=== PATIENT | female | born 1995 | race Caucasian/White ===

== ENCOUNTER → 2016-12-27 | Outpatient (CLI) | payer OTHER ==
--- NOTE | 2016-12-27 15:58 | REP ---
Chest x-ray: Two views. History: Bronchitis. . Comparison study: September 27, 2015 . Findings: The lungs are well inflated and free of infiltrate. The pleural angles are sharp. The heart size is normal. Pulmonary vasculature is not increased. No significant bony abnormality is seen. Impression: Negative chest x-ray. Signed by Chemo Morrison MD 12/27/2016 03:49 P
== END ==
LOC: M WUC 14:58
PROVIDERS: ATTEND Nurse Practitioner Family
DX: J20.9 Acute bronchitis, unspecified (principal)

== ENCOUNTER 2017-06-14 21:36 | Observation (INO) | payer OTHER ==
[~2017-06-14] VITALS: Ht 167.6 cm; Wt 86.4 kg
[2017-06-14] MEDS ORDERED: IMIT50TA PO (21:44)
[2017-06-14] MEDS ORDERED: LORA10TA2 PO (21:44)
[2017-06-14] MEDS ORDERED: ONDANSETRON 4MG/2ML VIAL (J2405) IV ONE (23:00)
[2017-06-14] MEDS ORDERED: MORPHINE 4 MG/ML 1ML SYRINGE IV ONE (23:00)
[2017-06-14 23:14] LABS: BASO % 0.5 % (0.0-1.0); EOS # 0.2 K/mm3 (0.0-0.50); EOS % 1.9 % (0.0-3.0); LARGE UNSTAINED CELL # 0.1 K/mm3 (0.0-0.4); LARGE UNSTAINED CELL % 1.2 % (0.0-4.0); LYMPH # 2.5 K/mm3 (1.5-6.5); LYMPH % 29.1 % (24.0-44.0); MEAN CORPUSCULAR HEMOGLOBIN 29.8 pg (27.0-33.0); MEAN CORPUSCULAR HGB CONC 34.3 g/dl (32.0-36.5); MEAN CORPUSCULAR VOLUME 86.7 fl (80.0-96.0); MONO # 0.4 K/mm3 (0.0-0.8); MONO % 5.3 % (0.0-5.0); NEUTROPHILS # 5.1 K/mm3 (1.8-7.7); PLATELET COUNT, AUTOMATED 217 k/mm3 (150-450); WHITE BLOOD COUNT 8.3 K/mm3 (4.0-10.0)
[2017-06-14 23:29] LABS: CONTROL LINE HCG INT CTR LINE PRESENT
[2017-06-14 23:37] LABS: ALBUMIN/GLOBULIN RATIO 1.18 (1.00-1.93); ALKALINE PHOSPHATASE 100 U/L (45-117); ALT/SGPT 23 U/L (12-78); AMYLASE 73 U/L (25-115); ANION GAP 3 MEQ/L (8-16); AST/SGOT 14 U/L (15-37); BILIRUBIN,DIRECT 0.1 MG/DL (0.0-0.2); BILIRUBIN,TOTAL 0.4 MG/DL (0.2-1.0); BLOOD UREA NITROGEN 13 MG/DL (7-18); CALCIUM LEVEL 9.1 MG/DL (8.5-10.1); CARBON DIOXIDE LEVEL 29 MEQ/L (21-32); CHLORIDE LEVEL 108 MEQ/L (98-107); GLOMERULAR FILTRATION RATE > 60.0 (>60); GLUCOSE, FASTING 81 MG/DL (70-105); POTASSIUM SERUM 4.3 MEQ/L (3.5-5.1); SODIUM LEVEL 140 MEQ/L (136-145); TOTAL PROTEIN 7.4 GM/DL (6.4-8.2)
[2017-06-14] MEDS ORDERED: ISOVUE-370 76% 100ML VIAL (Q9967) As Ordered ONE (23:43)
[2017-06-15] MEDS ORDERED: ZOSYN 3.375 GM VIAL (J2543) As Ordered ONE (02:31)
--- NOTE | 2017-06-15 03:26 | REPUSA ---
CLINICAL HISTORY: Abdominal pain. TECHNIQUE: Multiple axial, sagittal and coronal CT images were obtained through the abdomen and pelvi s after administration of intravenous contrast material. COMMENTS: Thickening and enhancement of the appendix. 2.6 cm ruptured follicle/corpus luteum enhancing cyst of the right ovary. Small amount of free pelvic fluid. The intrauterine device is at the level of the endocervical canal. The liver is mildly enlarged with decreased uniform attenuation without mass or defect. There is no i ntra or extrahepatic biliary ductal dilatation. The spleen is normal. The gallbladder is within steven l limits. The pancreas is of normal contour and attenuation characteristics. There is no evidence of adrenal mass. Both kidneys demonstrate prompt and equal nephrograms. The kidneys are normal in size, shape and conf iguration. There is no evidence of renal or ureteral mass. No renal or ureteral calculi are identifie d. There is no hydroureter or hydronephrosis. There is no bowel wall thickening. No evidence for small or large bowel obstruction. There is no evid ence of abdominal lymphadenopathy. There is no evidence of intrinsic or extrinsic bladder mass. Mild diffuse thickening of the wall of t he bladder. Images of the lung bases show no evidence of pleural or parenchymal mass. There are no pleural effusi ons. The bony structures are free of lytic or blastic lesions. IMPRESSION: Mild hepatomegaly with fatty liver infiltration. Thickening of and enhancement of the appendix suggestive of mild changes of acute appendicitis. No pe rforation or abscess formation. Findings were not present on prior exam performed on 11/02/2014. Ruptured follicle/corpus luteum cyst of the right ovary. Small amount of free pelvic fluid. The intrauterine device is partially in the endocervical canal. Thickened bladder suggestive of mild cystitis. Uncomplicated sigmoid diverticulosis. Thank you for your kind referral of this patient.
[2017-06-15 03:30] VITALS: BP 133/76
[2017-06-15] MEDS: MORPHINE 2 MG/ML 1ML SYRINGE IV PRN ×2 (04:35→08:14)
[2017-06-15] MEDS: LR 1,000 ML IV SCH ×3 (04:36→18:27)
[2017-06-15] MEDS ORDERED: ZONI50CA3 PO (04:43)
[2017-06-15] MEDS ORDERED: FLON1SPR (04:43)
[2017-06-15] MEDS ORDERED: VITATAB11 PO (04:43)
[2017-06-15] MEDS ORDERED: SUMA25TA3 PO (04:43)
[2017-06-15] MEDS ORDERED: ALBU17IN INH (04:43)
[2017-06-15] MEDS ORDERED: MAGN400T2 PO (04:43)
[2017-06-15] MEDS ORDERED: SKYL13.5 IU (04:43)
[2017-06-15] MEDS ORDERED: ZONI25CA2 PO (04:43)
[2017-06-15] MEDS ORDERED: AZEL0.1S3 (04:43)
[2017-06-15 06:32] LABS: MEAN CORPUSCULAR HEMOGLOBIN 29.9 pg (27.0-33.0); MEAN CORPUSCULAR VOLUME 87.8 fl (80.0-96.0); RED CELL DISTRIBUTION WIDTH 12.9 % (11.5-14.5); WHITE BLOOD COUNT 9.3 K/mm3 (4.0-10.0)
[2017-06-15 08:00] VITALS: BP 103/53
[2017-06-15] MEDS ORDERED: ACETAMINOPHEN TAB 650MG DOSE (2X325MG) PO PRN (09:00)
--- NOTE | 2017-06-15 10:53 | HPE ---
DATE: 06/15/2017 CHIEF COMPLAINT: Right lower quadrant pain. HISTORY OF PRESENT ILLNESS: The patient is 21-year-old female who presents a right lower quadrant pain that started suddenly while she was at work on Tuesday. The pain never went away, but it never really got much worse either. She came into emergency room last evening, Tuesday evening for evaluation. Vitals are stable. Labs were normal, however, a CAT scan showed small inflammation of the appendix so I was called to evaluate. She was admitted overnight with diagnosis of right lower quadrant pain. This morning upon further review of her CAT scan, she actually also has a 2.6 cm ruptured follicle coarse luteum cyst of the right ovary with a small amount of free fluid in the pelvis. She says that the pain did occur suddenly on Tuesday. No real change in appetite. No fevers. No nausea or vomiting. No problems with bowel movements or urination. She has never had any pains like this in the past. There is been minor improvement since she has been here overnight white count on admission was 8.38, its up to 9.3 today, still within normal range. Still denies any nausea or vomiting. No fevers or chills. PAST MEDICAL HISTORY: Positive for melanoma she had excised from her back. PAST SURGICAL HISTORY: Melanoma excision from back along with lymph nodes. No other surgeries. ALLERGIES: None. HOME MEDICATIONS: albuterol, Flonase, loratadine, sumatriptan, zonisamide. SOCIAL HISTORY: Denies drug or tobacco abuse. Drinks alcohol socially. REVIEW OF SYSTEMS: Pertinent positive and negatives started in the HPI. PHYSICAL EXAMINATION: General alert and oriented times three. In no acute distress. Vitals: Temperature 98.5, pulse 73, respirations 18, blood pressure 103/53, pulse ox 98% room air. HEENT: Pupils equal round react to light and accommodation. Heart: S1-S2 regular rate and rhythm. Lungs: Clear auscultation bilaterally. Abdomen: Soft, slight tenderness to palpation right lower quadrant. No rebounding, guarding or rigidity. Extremities: No clubbing, cyanosis or edema. LABORATORY DATA: White count 9.3, hemoglobin 12.7, platelets 200, potassium 4.3. IMAGING STUDIES: CT abdomen and pelvis shows thickening and enhancement of the appendix, a 2.6 cm ruptured follicle corpus luteum enhancing cyst of the right ovary small amount of free pelvic fluid. ASSESSMENT/PLAN: The patient is a 21-year-old female with the right lower quadrant pain that has been going on for the past over 48 hours. Normal vitals. Normal labs. There is thickening of the appendix on CAT scan, however, there is also a ruptured cyst of the right ovary with free fluid in the pelvis. At this time this inflammation of the appendix is likely reactive, the primary source is most likely this ruptured ovarian cyst on the right lower quadrant. Recommendation at this time is to trial a diet to see how she feels, if she is tolerating diet and no change in her labs or pain by tomorrow then she will be discharged home. If her pain gets worse, if she starts to develop nausea, vomiting, fevers or increasing pain then we will consider diagnostic laparoscopy tomorrow morning with further recommendations to follow.
[2017-06-15] MEDS: SENOKOT S TAB PO SCH ×2 (11:03→21:00)
[2017-06-15] MEDS: KETOROLAC 30 MG/ML VIAL (J1885) IV PRN ×2 (11:08→18:21)
[2017-06-15 12:00] VITALS: BP 99/54
[2017-06-15] MEDS: ONDANSETRON 4MG/2ML VIAL (J2405) IV PRN (13:27)
[2017-06-15 16:00] VITALS: BP 124/66
[2017-06-15] MEDS ORDERED: SUMAtriptan SUCCINATE 25 MG TAB PO ONE (17:15)
[2017-06-15 20:00] VITALS: BP 121/71
[2017-06-16] VITALS: BP 128/68
[2017-06-16] MEDS: KETOROLAC 30 MG/ML VIAL (J1885) IV PRN ×2 (00:16→07:50)
[2017-06-16] MEDS: LR 1,000 ML IV SCH (03:24)
[2017-06-16 04:00] VITALS: BP 119/63
[2017-06-16 06:29] LABS: BASO % 0.4 % (0.0-1.0); EOS # 0.1 K/mm3 (0.0-0.50); EOS % 1.6 % (0.0-3.0); LARGE UNSTAINED CELL # 0.1 K/mm3 (0.0-0.4); LARGE UNSTAINED CELL % 1.7 % (0.0-4.0); LYMPH # 2.6 K/mm3 (1.5-6.5); MEAN CORPUSCULAR HEMOGLOBIN 29.5 pg (27.0-33.0); MEAN CORPUSCULAR HGB CONC 33.9 g/dl (32.0-36.5); MONO # 0.4 K/mm3 (0.0-0.8); MONO % 5.7 % (0.0-5.0); NEUTROPHILS % 55.7 % (36.0-66.0); PLATELET COUNT, AUTOMATED 181 k/mm3 (150-450); RED CELL DISTRIBUTION WIDTH 12.9 % (11.5-14.5); WHITE BLOOD COUNT 7.1 K/mm3 (4.0-10.0)
[2017-06-16] MEDS: ONDANSETRON 4MG/2ML VIAL (J2405) IV PRN (07:57)
[2017-06-16] MEDS: SENOKOT S TAB PO SCH (07:57)
[2017-06-16 08:00] VITALS: BP 122/67
[2017-06-16] MEDS ORDERED: NORC1TAB4 PO (09:41)
[2017-06-17] MEDS ORDERED: ZONI25CA2 PO (17:02)
[2017-06-17] MEDS ORDERED: SUMA25TA3 PO (17:02)
[2017-06-17] MEDS ORDERED: ZONI50CA3 PO (17:02)
[2017-06-17] MEDS ORDERED: NORC1TAB4 PO (17:03)
--- NOTE | 2017-06-18 02:16 | DSES ---
DATE OF ADMISSION: 06/15/2017 DATE OF DISCHARGE: 06/16/2017 ADMISSION DIAGNOSIS: Right lower quadrant pain. DISCHARGE DIAGNOSIS: Ruptured right ovarian cyst. HOSPITAL COURSE: Patient is 21-year-old female who presented with right lower quadrant abdominal pain that started on Tuesday and she came in to the emergency room late Tuesday evening, had a CT scan done, which showed inflammation of the right appendix, as well as a ruptured cyst on the right ovary and free fluid in the pelvis. She had normal vital signs, normal white count in the emergency room (ER). She was admitted for observation. By later in the morning on 06/15, she was having similar pains, nausea, but still not having any fevers and her white count remained normal. She was started on a diet, allowed to ambulate. This morning, 06/16, she feels slightly improved, but is still having the same pains. She is still not having any signs of fever and her white count has decreased. At this time, it is likely that all of her symptoms are secondary to this ruptured ovarian cyst. I gave her the option of a diagnostic laparoscopy versus watching and waiting. She agrees that this is likely from her cyst and would like to try going home to see if this will improve on its own. I told her that she can go home. I will give her some pain medications to last her a couple of days. No antibiotics. If she starts to develop any increasing pain, any fevers, any problems with bowel movements or urination to call my office immediately and we will repeat a CT scan to see if there are any changes in her progression. This was likely just reactive appendicitis secondary to a ruptured cyst. PLAN: As stated above, discharge home. Call me with any changes in her symptoms and followup with me in the office as needed. She was given a script for Hudson for about 5 days to go home with.
== END 2017-06-16 10:30 | disposition home or self-care (01) ==
LOC: M ED 21:36 → M ED INP 06-15 02:35 → M PED 06-15 03:35
PROVIDERS: ADMIT Surgery; ATTEND Surgery
DX: N83.11 Corpus luteum cyst of right ovary (principal); R10.31 Right lower quadrant pain

== ENCOUNTER 2017-06-17 15:39 | Day surgery (SDC) | payer OTHER ==
[~2017-06-17] VITALS: Ht 167.6 cm; Wt 92.4 kg
[~2017-06-17 15:39] MED LIST: ALBU17IN INH; AZEL0.1S3; FLON1SPR; IMIT50TA PO; LORA10TA2 PO; MAGN400T2 PO; NORC1TAB4 PO; SKYL13.5 IU; SUMA25TA3 PO; VITATAB11 PO; ZONI25CA2 PO; ZONI50CA3 PO
[2017-06-17] MEDS ORDERED: PIPERACILLIN/TAZOBACTAM SOD 3.375 GM in D5W MINI-BAG PLUS 50 ML IV ONE (16:45)
[2017-06-17] MEDS ORDERED: ONDANSETRON 4MG/2ML VIAL (J2405) IV ONE (16:45)
[2017-06-17] MEDS ORDERED: GASTROGRAFIN SOLUTION 30ML (Q9963) PO ONE ×2 (16:45)
[2017-06-17] MEDS ORDERED: ZONI25CA2 PO (17:02)
[2017-06-17] MEDS ORDERED: SUMA25TA3 PO (17:02)
[2017-06-17] MEDS ORDERED: ZONI50CA3 PO (17:02)
[2017-06-17] MEDS ORDERED: NORC1TAB4 PO (17:03)
[2017-06-17] MEDS: MORPHINE 4 MG/ML 1ML SYRINGE IV PRN (17:43)
[2017-06-17 17:44] LABS: BASO # 0.1 K/mm3 (0.0-0.2); BASO % 0.9 % (0.0-1.0); CONTROL LINE HCG INT CTR LINE PRESENT; EOS % 0.6 % (0.0-3.0); LARGE UNSTAINED CELL # 0.1 K/mm3 (0.0-0.4); LYMPH # 1.1 K/mm3 (1.5-6.5); LYMPH % 15.3 % (24.0-44.0); MEAN CORPUSCULAR HEMOGLOBIN 30.4 pg (27.0-33.0); MEAN CORPUSCULAR HGB CONC 34.8 g/dl (32.0-36.5); MEAN CORPUSCULAR VOLUME 87.4 fl (80.0-96.0); MONO # 0.3 K/mm3 (0.0-0.8); MONO % 4.2 % (0.0-5.0); NEUTROPHILS # 5.7 K/mm3 (1.8-7.7); PLATELET COUNT, AUTOMATED 187 k/mm3 (150-450); RED CELL DISTRIBUTION WIDTH 12.7 % (11.5-14.5); WHITE BLOOD COUNT 7.3 K/mm3 (4.0-10.0)
[2017-06-17 17:48] LABS: ALBUMIN 3.7 GM/DL (3.2-5.2); ALBUMIN/GLOBULIN RATIO 1.06 (1.00-1.93); ALKALINE PHOSPHATASE 92 U/L (45-117); ALT/SGPT 34 U/L (12-78); ANION GAP 5 MEQ/L (8-16); AST/SGOT 20 U/L (15-37); BILIRUBIN,DIRECT 0.1 MG/DL (0.0-0.2); BILIRUBIN,TOTAL 0.6 MG/DL (0.2-1.0); BLOOD UREA NITROGEN 14 MG/DL (7-18); CALCIUM LEVEL 8.8 MG/DL (8.5-10.1); CARBON DIOXIDE LEVEL 26 MEQ/L (21-32); CHLORIDE LEVEL 106 MEQ/L (98-107); CREATININE FOR GFR 0.78 MG/DL (0.55-1.02); GLOMERULAR FILTRATION RATE > 60.0 (>60); GLUCOSE, FASTING 84 MG/DL (70-105); SODIUM LEVEL 137 MEQ/L (136-145); TOTAL PROTEIN 7.2 GM/DL (6.4-8.2)
[2017-06-17] MEDS ORDERED: ISOVUE-370 76% 100ML VIAL (Q9967) As Ordered ONE (18:57)
--- NOTE | 2017-06-17 19:12 | REP ---
PELVIC ULTRASOUND: Real-time sonographic evaluation of the pelvis was performed utilizing transabdominal and endovaginal technique. The urinary bladder is not distended. Uterus measures 7.9 x 3.9 x 4.9 cm. Endometrial thickness is approximately 7 mm. IUD is seen in the lower uterine segment of the cervix. Right ovary measures 4.1 x 2.2 x 2.8 cm. There is a dominant follicle in the right ovary 1.4 x 0.9 x 1.6 cm. There is trace adjacent free fluid. There is no right ovarian torsion with RI of the right ovary 0.43. Left ovary could not be seen due to overlying bowel. Uterus has a somewhat septate configuration. IMPRESSION: IUD in the lower uterine segment and cervical canal. Dominant follicle right ovary 1.6 cm in maximum diameter with no torsion. Trace adjacent free fluid, left ovary could not be visualized. Signed by Alan Cleveland MD 06/17/2017 08:20 P
--- NOTE | 2017-06-17 19:57 | HPEPDOC ---
General Surgery H&P Date of Admission History and Physical CHIEF COMPLAINT: Right-sided abdominal pain HISTORY OF PRESENT ILLNESS: he patient is a 21-year-old female admitted with a reason for visit of right-sided abdominal pain. She reports 5 day history of abdominal pain that started late Tuesday. She was seen here Tuesday and was briefly admitted for observation. Her symptoms did not get worse though it not also improved. She was able to tolerate food and was subsequently discharged home and told to call if her symptoms worsen or started having vomiting, fever or worsening abdominal pain which did happened this morning. Patient reports fevers and chills when she woke up this morning has more constant and sharp abdominal pain over her right lower quadrant area also reports nausea. Thus she presented back to the emergency room ALLERGIES: Please see below. HOME MEDICATIONS: Please see below. PAST MEDICAL HISTORY: Melanoma, back PAST SURGICAL HISTORY: Excision of melanoma, axillary node dissection PERSONAL/SOCIAL HISTORY: Denies smoking, alcohol use, or recreational drug use. REVIEW OF SYSTEMS: GENERAL: Reports chills, fever this morning. HEENT: Denies blurred vision and double vision. Denies ear symptoms. Denies hoarseness. NECK: Denies any neck pain. CARDIOVASCULAR: Denies chest pain and palpitations. MUSCULOSKELETAL: Denies arthralgias, back pain and thrombophlebitis. SKIN: Denies rash. NEUROLOGIC: Denies headache, stroke and transient ischemic attack. PSYCHIATRIC: Reports anxiety ENDOCRINE: Denies thyroid disease. HEMATOLOGY/ONCOLOGY: Denies any bleeding or clotting disorder. HEART: Denies any chest pains, palpitations, paroxysmal dyspnea, orthopnea. PULMONARY: Denies chronic cough, dyspnea and wheezing. GASTROINTESTINAL: See HPI. GENITOURINARY: Denies dysuria, frequency, hematuria and nocturia. ENDOCRINE: Denies polydipsia, polyphagia, polyuria, heat or cold intolerance. INFECTIOUS: Denies any recent upper respiratory tract infection, UTI, need for use of antibiotics. NUTRITION: Reports anorexia. PHYSICAL EXAMINATION: VITAL SIGNS: Please see below. GENERAL APPEARANCE: Patient seen at bedside, crying, appears anxious, uncomfortable HEENT: Normocephalic, atraumatic. Cushing palpebral conjunctivae. Anicteric sclerae. Lips moist. CHEST: No chest wall abnormalities. Normal respiratory motion/effort. NECK: Supple. No thyromegaly. No lymphadenopathies. LUNGS: Lung sounds are clear to auscultation bilaterally. No wheezing appreciated. HEART: No chest wall abnormalities. Heart rate and rhythm are regular with no murmurs. ABDOMEN: Abdomen is mildly obese, soft, nondistended. Tender over the right side of the abdomen going towards the suprapubic area with voluntary guarding. Nontender left side of the abdomen. SKIN: Warm, moist. EXTREMITIES: Extremities have no deformities. No edema identified. NEUROLOGICAL: Awake alert and oriented ANCILLARIES: . LABORATORY DATA: Please see below. MICROBIOLOGY: Please see below. IMAGING: She has CT scan of the abdomen and pelvis done on previous admission on June 12 this was also repeated today. This has not been officially read yet. I looked at the CAT scan and compared it with the previous imaging studies and findings almost looked the same with probable mild Initial inflammation also presence of corpus luteum cyst with small amount of free fluid surrounding it. IMPRESSION AND PLAN: . Patient is persistent right-sided abdominal pain with possible signs of systemic infection with her reporting fevers and chills this morning. She still don't have leukocytosis. No fevers noted in the vitals today. She is tender over the right side also going towards the pelvis. Both the hemorrhagic corpus luteum cyst and mild appendicitis can cause this. We will bring her to the operating room for diagnostic laparoscopy. I have spoken to her regarding my plans regarding the appendix. If we confirm that she does have appendicitis she will have an appendectomy. I have spoken to Dr. Multani who is at the hospital. If it turns out that she has a normal appendix and a hemorrhagic corpus luteum cyst I will ask him to take a look in the operating room and decide if there is anything that needs to be done. I did tell the patient that even with a normal appendix, I intend to perform the appendectomy as if she does have recurrent hemorrhagic cysts, she will end up with the same predicament and this will in turn remove the appendix from the equation when she's had the appendectomy. Consent was obtained from the patient. She was already given a dose of Zosyn which should be adequate for our preoperative dose. Vital Signs Vital Signs Date Time Temp Pulse Resp B/P (MAP) Pulse Ox O2 Delivery O2 Flow Rate FiO2 06/17/17 17:53 16 06/17/17 17:35 06/17/17 15:40 98.6 108 97 Room Air Laboratory Data Labs 24H Laboratory Tests 2 06/17/17 17:13: White Blood Count 7.3, Red Blood Count 4.65, Hemoglobin 14.1, Hematocrit 40.7, Mean Corpuscular Volume 87.4, Mean Corpuscular Hemoglobin 30.4, Mean Corpuscular Hemoglobin Concent 34.8, Red Cell Distribution Width 12.7, Platelet Count 187, Neutrophils (%) (Auto) 78.0H, Lymphocytes (%) (Auto) 15.3L, Monocytes (%) (Auto) 4.2, Eosinophils (%) (Auto) 0.6, Basophils (%) (Auto) 0.9, Neutrophils # (Auto) 5.7, Lymphocytes # (Auto) 1.1L, Monocytes # (Auto) 0.3, Eosinophils # (Auto) 0.0, Basophils # (Auto) 0.1, Large Unclassified Cells % 1.0 , Large Unclassified Cells # 0.1, Anion Gap 5L, Glomerular Filtration Rate > 60.0, Calcium Level 8.8, Aspartate Amino Transf (AST/SGOT) 20, Alanine Aminotransferase (ALT/SGPT) 34, Alkaline Phosphatase 92, Total Bilirubin 0.6, Direct Bilirubin 0.1, Total Protein 7.2, Albumin 3.7, Albumin/Globulin Ratio 1.06, Lipase 116, Human Chorionic Gonadotropin, Qual NEGATIVE CBC/BMP Laboratory Tests 06/17/17 17:13 Red Blood Count 4.65, Mean Corpuscular Volume 87.4, Mean Corpuscular Hemoglobin 30.4, Mean Corpuscular Hemoglobin Concent 34.8, Red Cell Distribution Width 12.7 , Neutrophils (%) (Auto) 78.0 H, Lymphocytes (%) (Auto) 15.3 L, Monocytes (%) ( Auto) 4.2, Eosinophils (%) (Auto) 0.6, Basophils (%) (Auto) 0.9, Neutrophils # ( Auto) 5.7, Lymphocytes # (Auto) 1.1 L, Monocytes # (Auto) 0.3, Eosinophils # ( Auto) 0.0, Basophils # (Auto) 0.1 Home Medications Scheduled (Flonase Allergy Relief) 50 Mcg/Act Spr, 100 MCG NA DAILY, (Reported) Azelastine Hydrochloride (Azelastine HCl) 137 Mcg/Crozier Spr, 1 SPRAY NA QHS, ( Reported) B1/B2/B3/B5/B6 (Vitamin B Complex) 1 Tab Tab, 1 TAB PO BID, (Reported) Levonorgestrel (Henrietta) 13.5 Mg Iud, 13.5 MG IU ASDIRECTED, (Reported) IMPLANTED 2015 Loratadine (Loratadine) 10 Mg Tab, 10 MG PO DAILY, (Reported) Magnesium Oxide (Magnesium Oxide) 400 Mg Tab, 400 MG PO DAILY, (Reported) Zonisamide (Zonisamide) 25 Mg Cap, 25 MG PO QHS, (Reported) Zonisamide (Zonisamide) 50 Mg Cap, 50 MG PO BID, (Reported) Scheduled PRN Acetaminophen/Hydrocodone (Basalt 5-325 mg) 1 Tab Tab, 1 TAB PO Q4H PRN for PAIN, (Reported) Albuterol Sulfate (Ventolin Hfa) 200 Puff/8 Gm Aers, 2 PUFF INH QID PRN for SHORTNESS OF BREATH, (Reported) Sumatriptan Succinate (Sumatriptan Succinate) 25 Mg Tab, 25 MG PO DAILY PRN for HEADACHE, (Reported) Allergies Coded Allergies: No Known Allergies (Unverified , 06/14/17) EMILIANO BRADFORD MD Jun 17, 2017 19:57
[2017-06-17] MEDS ORDERED: PHENYLEPHRINE 0.5% NASAL SPRAY 15 ML As Ordered ONE (20:28)
[2017-06-17] MEDS ORDERED: LIDOCAINE 1% SDV INJ 30 ML VIAL As Ordered ONE (21:02)
[2017-06-17] MEDS ORDERED: BUPIVACAINE HCL 0.25% 30 ML VIAL As Ordered ONE (21:03)
[2017-06-17] MEDS ORDERED: METOCLOPRAMIDE INJ 10MG/2ML VIAL (J2765) As Ordered ONE (21:09)
[2017-06-17] MEDS ORDERED: ROCURONIUM BROMIDE 50 MG/5 ML VIAL/SYRINGE As Ordered ONE (21:09)
[2017-06-17] MEDS ORDERED: fentaNYL 250 MCG/5 ML INJECTION (J3010) As Ordered ONE (21:09)
[2017-06-17] MEDS ORDERED: LIDOCAINE 2% INJ 100 MG/5 ML SDV (FOR ANES.) As Ordered ONE (21:09)
[2017-06-17] MEDS ORDERED: GLYCOPYRROLATE INJ 0.2 MG/ML 2 ML VIAL As Ordered ONE (21:09)
[2017-06-17] MEDS ORDERED: NEOSTIGMINE 1MG/ML 5 ML SYRINGE (J2710) As Ordered ONE (21:09)
[2017-06-17] MEDS ORDERED: MIDAZOLAM INJ 2 MG/2 ML VIAL (J2250) As Ordered ONE (21:09)
[2017-06-17] MEDS ORDERED: ONDANSETRON 4MG/2ML VIAL (J2405) As Ordered ONE (21:09)
[2017-06-17] MEDS ORDERED: KETOROLAC 60 MG/2 ML VIAL (J1885) As Ordered ONE (21:09)
[2017-06-17] MEDS ORDERED: PROPOFOL 200 MG/20 ML VIAL As Ordered ONE (21:09)
[2017-06-17] MEDS ORDERED: DESFLURANE 240 ML INHALANT As Ordered ONE (21:11)
[2017-06-17] MEDS ORDERED: ACETAMINOPHEN TAB 650MG DOSE (2X325MG) PO PRN (22:00)
[2017-06-17] MEDS ORDERED: NORCO, ANEXSIA 5/325MG TABLET (HYDROcodone/ACETAMINOPHEN) PO PRN (22:00)
[2017-06-17] MEDS: ONDANSETRON 4MG/2ML VIAL (J2405) IV PRN (22:02)
[2017-06-17] MEDS ORDERED: PERCOCET 5MG/325MG TAB PO PRN (22:15)
[2017-06-17] MEDS ORDERED: LR 1,000 ML IV SCH (22:15)
[2017-06-17] MEDS ORDERED: ONDANSETRON 4MG/2ML VIAL (J2405) IV PRN (22:15)
[2017-06-17] MEDS ORDERED: METOCLOPRAMIDE INJ 10MG/2ML VIAL (J2765) IV PRN (22:15)
[2017-06-17] MEDS ORDERED: MEPERIDINE INJ 25 MG/ML VIAL (J2175) IV PRN (22:15)
[2017-06-17] MEDS ORDERED: fentaNYL 100 MCG/2 ML INJECTION (J3010) IV PRN (22:15)
[2017-06-17 22:30] VITALS: BP 106/56
[2017-06-17] MEDS: NORCO, ANEXSIA 5/325MG TABLET (HYDROcodone/ACETAMINOPHEN) PO PRN (22:53)
[2017-06-17 23:00] VITALS: BP 110/58
[2017-06-17 23:30] VITALS: BP 103/59
[2017-06-18 00:30] VITALS: BP 111/57
[2017-06-18] MEDS: LR 1,000 ML IV SCH ×2 (00:30→11:35)
[2017-06-18 01:30] VITALS: BP 108/52
[2017-06-18 02:30] VITALS: BP 103/52
[2017-06-18 03:30] VITALS: BP 103/58
[2017-06-18] MEDS: KETOROLAC 30 MG/ML VIAL (J1885) IV PRN ×2 (06:05→15:38)
[2017-06-18 07:23] LABS: BASO % 0.1 % (0.0-1.0); EOS % 0.3 % (0.0-3.0); LARGE UNSTAINED CELL # 0.1 K/mm3 (0.0-0.4); LYMPH # 1.1 K/mm3 (1.5-6.5); LYMPH % 11.9 % (24.0-44.0); MEAN CORPUSCULAR HEMOGLOBIN 29.7 pg (27.0-33.0); MEAN CORPUSCULAR HGB CONC 34.2 g/dl (32.0-36.5); MEAN CORPUSCULAR VOLUME 86.7 fl (80.0-96.0); MONO # 0.4 K/mm3 (0.0-0.8); MONO % 4.4 % (0.0-5.0); NEUTROPHILS # 7.2 K/mm3 (1.8-7.7); NEUTROPHILS % 82.3 % (36.0-66.0); PLATELET COUNT, AUTOMATED 165 k/mm3 (150-450); RED CELL DISTRIBUTION WIDTH 12.9 % (11.5-14.5); WHITE BLOOD COUNT 8.8 K/mm3 (4.0-10.0)
[2017-06-18 07:39] LABS: ANION GAP 6 MEQ/L (8-16); BLOOD UREA NITROGEN 15 MG/DL (7-18); CALCIUM LEVEL 8.9 MG/DL (8.5-10.1); CARBON DIOXIDE LEVEL 26 MEQ/L (21-32); CHLORIDE LEVEL 104 MEQ/L (98-107); CREATININE FOR GFR 0.69 MG/DL (0.55-1.02); GLOMERULAR FILTRATION RATE > 60.0 (>60); GLUCOSE, FASTING 91 MG/DL (70-105); POTASSIUM SERUM 3.8 MEQ/L (3.5-5.1); SODIUM LEVEL 136 MEQ/L (136-145)
[2017-06-18 08:00] VITALS: BP 110/57
[2017-06-18] MEDS: ONDANSETRON 4MG/2ML VIAL (J2405) IV PRN (08:56)
[2017-06-18] MEDS ORDERED: SENOKOT S TAB PO SCH (09:00)
[2017-06-18] MEDS: MORPHINE 4 MG/ML 1ML SYRINGE IV PRN (09:17)
[2017-06-18] MEDS ORDERED: NORC1TAB4 PO (10:27)
[2017-06-18] MEDS ORDERED: ZOFR20TA PO (10:28)
[2017-06-18] MEDS ORDERED: MOM 30ML SUSPENSION UDC PO ONE (11:00)
[2017-06-18] MEDS: NORCO, ANEXSIA 5/325MG TABLET (HYDROcodone/ACETAMINOPHEN) PO PRN (11:34)
[2017-06-18 12:00] VITALS: BP 108/56
[2017-06-18] MEDS ORDERED: NORCO, ANEXSIA 5/325MG TABLET (HYDROcodone/ACETAMINOPHEN) PO ONE (15:30)
--- NOTE | 2017-06-21 09:37 | ROOPDOC ---
[facility] Report Of Operation Report of Operation DATE OF PROCEDURE: 06/17/17 PREPROCEDURE DIAGNOSES: right lower quadrant pain, possible appendicitis vs right ovarian cyst rupture POSTPROCEDURE DIAGNOSES: Small right ovarian cyst, no evidence of hemorrhagic rupture. Mildly enlarged appendix with no evidence for inflammation. PROCEDURE: Diagnostic laparoscopy, laparoscopic appendectomy SURGEON: Jackeline Marcus MD CORPORATE TRAINER: PROMISE Galvez ANESTHESIA: general ESTIMATED BLOOD LOSS: Approximately 10 mL. COMPLICATIONS: none REMARKS: mildly dilated appendix with no signs of ongoing inflammation, infection. Small right ovarian cyst with no signs of recent rupture/hemorrhage. Dr. Multani was in the room and looked at the left and right ovaries. The gallbladder was distended but not inflamed. PROCEDURE NOTE: 21-year-old female who has returned to the hospital with ongoing right-sided abdominal pain and imaging studies shows possible early acute appendicitis versus a ruptured hemorrhagic right ovarian cyst. DESCRIPTION OF PROCEDURE: Patient has been given a dose of Zosyn perioperatively.Patient was brought to the operating room, placed supine on the table. Sequential compression device placed for DVT prophylaxis. General endotracheal anesthesia started. The abdomen prepped and draped in usual sterile fashion. After a surgical timeout, we began our surgery Entry into the abdomen done through an incision above the umbilicus. Veress needle inserted on a controlled fashion. Intra-abdominal placement confirmed with saline drop technique. CO2 insufflation started to a pressure of 15 mmHg. Using the same incision a 12 mm port was placed under direct vision of laparoscope. Insertion site was inspected for injury and none was found. She was placed on a Trendelenburg position the right side tilted to about 30 to allow for better visualization of the appendix. 2 working ports were placed at the suprapubic area and left lower quadrant area under direct vision. Operative findings: mildly dilated appendix with no signs of ongoing inflammation, infection. Small right ovarian cyst with no signs of recent rupture/hemorrhage. Dr. Multani was in the room and looked at the left and right ovaries. The gallbladder was distended but not inflamed. The appendix was delivered into view. The mesoappendix was divided using Harmonic scalpel down to the base. A Vicryl Endoloop was placed to ligate the appendix at its base then divided with a Harmonic Scalpel the stump cauterized. There was stool inside of the appendiceal lumen Stump appears healthy. Appendix was then delivered into an Endo Catch bag. After re- insufflation the surgical site was inspected for hemostasis. Surrounding areas of the abdomen and inspected for fluid collections or signs of injury.The abdomen was deflated. All ports removed. The umbilical fascial defect repaired with 0 Vicryl in a mattress fashion. All skin incisions closed with 4-0 Monocryl in a subcuticular fashion. Steri-Strips and gauze dressing used for wound coverage. Patient was promptly awake and extubated and brought to recovery room stable. All counts of sponges and instruments verified to be correct. EMILIANO MARCUS MD Jun 21, 2017 09:37
== END 2017-06-18 16:20 | disposition home or self-care (01) ==
LOC: M ED 15:39 → M SDC 19:40 → M PED 22:25 → M SDC 06-18 16:20
PROVIDERS: ATTEND Surgery
DX: K38.8 Other specified diseases of appendix (principal); N83.201 Unspecified ovarian cyst, right side; J45.909 Unspecified asthma, uncomplicated; E66.9 Obesity, unspecified; C43.59 Malignant melanoma of other part of trunk; R51 Headache; Z79.899 Other long term (current) drug therapy

== ENCOUNTER 2017-06-22 21:36 | Emergency (ER) | payer OTHER ==
[~2017-06-22] VITALS: Ht 167.6 cm; Wt 90.7 kg
[~2017-06-22 21:36] MED LIST changes: +ZOFR20TA PO
[2017-06-22] MEDS ORDERED: COLA100C5 PO (21:43)
[2017-06-22] MEDS ORDERED: NS 1,000 ML IV SCH (22:37)
[2017-06-22] MEDS ORDERED: ONDANSETRON 4MG/2ML VIAL (J2405) IV ONE (22:45)
[2017-06-22] MEDS ORDERED: KETOROLAC 30 MG/ML VIAL (J1885) IV ONE (22:45)
[2017-06-22 22:51] LABS: BASO % 0.3 % (0.0-1.0); EOS # 0.2 K/mm3 (0.0-0.50); EOS % 3.7 % (0.0-3.0); LARGE UNSTAINED CELL # 0.1 K/mm3 (0.0-0.4); LARGE UNSTAINED CELL % 1.8 % (0.0-4.0); LYMPH # 1.9 K/mm3 (1.5-6.5); LYMPH % 26.4 % (24.0-44.0); MEAN CORPUSCULAR HEMOGLOBIN 29.7 pg (27.0-33.0); MEAN CORPUSCULAR VOLUME 87.6 fl (80.0-96.0); MONO # 0.3 K/mm3 (0.0-0.8); MONO % 3.9 % (0.0-5.0); NEUTROPHILS # 4.2 K/mm3 (1.8-7.7); NEUTROPHILS % 63.9 % (36.0-66.0); PLATELET COUNT, AUTOMATED 277 k/mm3 (150-450); RED CELL DISTRIBUTION WIDTH 12.7 % (11.5-14.5); WHITE BLOOD COUNT 6.6 K/mm3 (4.0-10.0)
[2017-06-22 22:58] LABS: INR 0.96
[2017-06-22 23:15] LABS: ALKALINE PHOSPHATASE 86 U/L (45-117); ALT/SGPT 20 U/L (12-78); ANION GAP 8 MEQ/L (8-16); AST/SGOT 10 U/L (15-37); BLOOD UREA NITROGEN 14 MG/DL (7-18); CALCIUM LEVEL 9.5 MG/DL (8.5-10.1); CARBON DIOXIDE LEVEL 26 MEQ/L (21-32); CHLORIDE LEVEL 101 MEQ/L (98-107); CREATININE FOR GFR 0.73 MG/DL (0.55-1.02); GLOMERULAR FILTRATION RATE > 60.0 (>60); GLUCOSE, FASTING 91 MG/DL (70-105); SODIUM LEVEL 135 MEQ/L (136-145)
[2017-06-22 23:16] LABS: ALBUMIN 3.6 GM/DL (3.2-5.2); ALBUMIN/GLOBULIN RATIO 0.82 (1.00-1.93); AMYLASE 61 U/L (25-115); BILIRUBIN,DIRECT < 0.1 MG/DL (0.0-0.2); BILIRUBIN,TOTAL 0.3 MG/DL (0.2-1.0)
--- NOTE | 2017-06-22 23:30 | REPUSA ---
CT of the abdomen and pelvis without contrast Clinical statement: Pain. Technique: Multiple axial CT images were obtained from the base of the lungs to the floor of the pelv is utilizing 5 mm axial slices without administration of contrast. Coronal and sagittal reconstructio ns were also obtained. Comparison: 06/17/2017. Findings: Chest: The visualized lung bases are clear. Abdomen: The kidneys are normal in size bilaterally. There is no evidence of hydronephrosis. Several tiny punctate nonobstructing stones are seen in the kidneys bilaterally, measuring up to 1 mm. The li jimmy, spleen, pancreas, gallbladder and adrenal glands are unremarkable. The aorta demonstrates normal caliber and contour. There is no abdominal lymphadenopathy or ascites. Tiny amount of free intraperi toneal air is noted, likely postsurgical in nature. Subcutaneous emphysema is also seen in the anteri or abdominal wall. Pelvis: The bowel is unremarkable, with no obstructive or inflammatory changes. Scattered areas of fr ee air postsurgical changes are noted. No loculated fluid collection is identified. The patient is st atus post recent appendectomy. Postsurgical changes are seen in the right lower quadrant. The urinary bladder is within normal limits. There is no pelvic lymphadenopathy or ascites. IUD is in place with in the uterus. The other pelvic structures appear unremarkable. Bones: There are no suspicious osseous abnormalities seen. Impression: 1. Postsurgical changes from appendectomy is noted. No evidence of focal abscess or fluid collection. 2. Moderate amount of scattered free air throughout the abdomen and pelvis. 3. Subcutaneous emphysema in the abdominal wall, most prominent in the upper anterior abdomen and the left flank region. 4. No obstructive bowel changes. 5. Bilateral nonobstructing nephrolithiasis. ER physician was notified of these findings at 11:27 PM on 06/22/2017.
[2017-06-22 23:46] VITALS: BP 123/72
--- NOTE | 2017-06-23 07:34 | ED PDOC ---
Post-Departure Follow-Up radiology report faxed to Alla Murrell MD Jun 23, 2017 07:34
== END 2017-06-22 23:47 | disposition home or self-care (01) ==
LOC: M ED 21:36
DX: G89.18 Other acute postprocedural pain (principal)
CPT/HCPCS: 74176; 80048; 80076; 81001; 82150; 83690; 85025; 85610; 87086; 96374; 96375; 99283; J1885; J2405

== ENCOUNTER → 2017-07-18 | Outpatient (CLI) | payer OTHER ==
[~2017-07-18] MED LIST changes: +COLA100C5 PO
--- NOTE | 2017-07-18 15:39 | REP ---
PELVIC ULTRASOUND: Real-time sonographic evaluation of the pelvis performed. Transabdominal and endovaginal technique is utilized with 3D reconstructed images also performed. Uterine configuration appears to be subseptate. Uterus measures 8.6 x 3.8 x 4.9 cm. Endometrial thickness is approximately 2 mm. There is no endometrial fluid collection. Left ovary could not be visualized. Right ovary measures 2.8 x 1.9 x 2.3 cm. There is blood flow seen in the right ovary with duplex Doppler evaluation, with no torsion, RI 0.71. I see no adnexal mass or free fluid. IMPRESSION: Uterus appears to have a subseptate configuration. Left ovary not visualized. Right ovary normal. Signed by Alan Cleveland MD 07/18/2017 04:11 P
== END ==
LOC: M RAD 12:48
PROVIDERS: ATTEND Obstetrics & Gynecology
DX: Q51.2 Other doubling of uterus (principal)

== ENCOUNTER → 2017-09-10 | Outpatient (CLI) | payer OTHER ==
--- NOTE | 2017-09-10 12:05 | REP ---
MRI study of the pelvis without contrast: History: Question septate or bicornuate uterus. Comparison pelvic sonography July 18, 2017 showed a subseptate uterine configuration. CT study abdomen and pelvis is reviewed from June 17, 2017. The patient is status post IUD removal. Technique: Axial, coronal and sagittal imaging planes were utilized. Sequences include oblique images parallel to the long axis of the uterus. T1 and T2-weighted scans are obtained. MRI findings: Cortical and medullary bone signal intensity is normal as visualized. No pelvic mass or adenopathy is seen. No ovarian abnormality is seen on either side. No free fluid is noted. Urinary bladder mac are smooth. No adenopathy or abdominal wall defect is seen. Uterine dimensions are 7.3 x 3.4 . The endometrial thickness is 1.3 cm. The endometrial cavity has a subseptate morphology. On oblique coronal uterine T2-weighted scans there is a indentation into the fundal surface of the endometrium measuring 1.0 cm. This is compatible with arcuate uterus. The serosal surface of the uterine fundus is not indented. A single endometrial cavity is seen. A single cervix is visualized. Impression: Uterine morphology consistent with arcuate uterus. Signed by Chemo Morrison MD 09/10/2017 02:18 P
== END ==
LOC: M RAD 08:54
PROVIDERS: ATTEND Obstetrics & Gynecology
DX: Q51.2 Other doubling of uterus (principal)

== ENCOUNTER 2017-10-15 16:26 | Emergency (ER) | payer OTHER ==
[~2017-10-15] VITALS: Ht 167.6 cm; Wt 87.7 kg
[2017-10-15 16:32] VITALS: BP 119/70
[2017-10-15] MEDS ORDERED: BREO1INH3 INH (16:38)
== END 2017-10-15 18:12 | disposition left against medical advice (07) ==
LOC: M ED 16:26
DX: Z53.21 Procedure and treatment not carried out due to patient leaving prior to being seen by health care provider (principal)

== ENCOUNTER 2017-11-24 17:53 | Emergency (ER) | payer OTHER | END 2017-11-24 19:43 | disposition home or self-care (01) | LOC: M ED 17:53 | DX: L30.9 Dermatitis, unspecified (principal); J45.909 Unspecified asthma, uncomplicated; G43.909 Migraine, unspecified, not intractable, without status migrainosus; Z79.51 Long term (current) use of inhaled steroids; Z91.040 Latex allergy status | CPT/HCPCS: 99283 ==

== ENCOUNTER → 2017-12-15 | Outpatient (REF) | payer OTHER ==
[2017-12-15 18:42] LABS: HCG, SERUM QUANTITATIVE < 1.0 MIU/ML
[2017-12-15 19:33] LABS: CONTROL LINE HCG INT CTR LINE PRESENT; HCG, SERUM QUALITATIVE NEGATIVE (NEGATIVE)
== END ==
LOC: M LAB REF 16:51
DX: Z32.01 Encounter for pregnancy test, result positive (principal); Z3A.00 Weeks of gestation of pregnancy not specified

== ENCOUNTER → 2018-01-06 | Outpatient (REF) | payer OTHER ==
[2018-01-06 15:57] LABS: INFLUENZA A AMPLIFICATION NEGATIVE (NEGATIVE); INFLUENZA B AMPLIFICATION NEGATIVE (NEGATIVE); RSV AMPLIFICATION NEGATIVE (NEGATIVE)
== END ==
LOC: M LAB REF 15:01
DX: J11.1 Influenza due to unidentified influenza virus with other respiratory manifestations (principal)
CPT/HCPCS: 87502

== ENCOUNTER 2018-02-06 06:13 | Emergency (ER) | payer OTHER ==
[2018-02-06] MEDS: ONDANSETRON 4MG/2ML VIAL (J2405) IV (06:46)
[2018-02-06] MEDS: KETOROLAC 30 MG/ML VIAL (J1885) IV (06:46)
[2018-02-06 06:48] LABS: BASO % 0.3 % (0.0-1.0); EOS # 0.1 10^3/uL (0.0-0.50); EOS % 0.5 % (0.0-3.0); HEMATOCRIT 38.5 % (36.0-47.0); HEMOGLOBIN 13.1 g/dl (12.0-16.0); IMMATURE GRANULOCYTE % 0.5 % (0-3.0); LYMPH # 2.2 10^3/uL (1.5-6.5); LYMPH % 16.5 % (24.0-44.0); MEAN CORPUSCULAR VOLUME 85.2 fl (80.0-96.0); MONO # 0.7 10^3/uL (0.0-0.8); MONO % 5.6 % (0.0-5.0); NEUTROPHILS # 10.2 10^3/uL (1.8-7.7); NEUTROPHILS % 76.6 % (36.0-66.0); PLATELET COUNT, AUTOMATED 238 10^3/uL (150-450); RED BLOOD COUNT 4.52 10^6/uL (4.00-5.40); RED CELL DISTRIBUTION WIDTH 12.5 % (11.5-14.5); WHITE BLOOD COUNT 13.3 10^3/uL (4.0-10.0)
[2018-02-06 06:52] LABS: AMORPHOUS SEDIMENT LARGE (NEGATIVE); APPEARANCE, URINE TURBID (CLEAR); BACTERIA, URINE AUTO NEGATIVE (NEGATIVE); BILIRUBIN, URINE AUTO NEGATIVE (NEGATIVE); BLOOD, URINE BLOOD NEGATIVE (NEGATIVE); COLOR, URINE YELLOW (YELLOW); GLUCOSE, URINE (UA) AUTO NEGATIVE (NEGATIVE); KETONE, URINE AUTO NEGATIVE (NEGATIVE); LEUKOCYTE ESTERASE, URINE AUTO NEGATIVE (NEGATIVE); NITRITE, URINE AUTO NEGATIVE (NEGATIVE); PROTEIN, URINE AUTO NEGATIVE (NEGATIVE); RBC, URINE AUTO 3 /HPF (0-3); SPECIFIC GRAVITY URINE AUTO 1.014 (1.002-1.035); SQUAMOUS EPITHELIAL CELL UR AU 3 /HPF (0-6); WBC, URINE AUTO 0 /HPF (0-3)
[2018-02-06 06:59] LABS: CONTROL LINE HCG INT CTR LINE PRESENT; HCG, SERUM QUALITATIVE NEGATIVE (NEGATIVE)
[2018-02-06 07:06] LABS: ALBUMIN/GLOBULIN RATIO 1.11 (1.00-1.93); ALKALINE PHOSPHATASE 94 U/L (45-117); ALT/SGPT 31 U/L (12-78); AMYLASE 63 U/L (25-115); ANION GAP 10 MEQ/L (8-16); AST/SGOT 12 U/L (7-37); BILIRUBIN,DIRECT 0.1 MG/DL (0.0-0.2); BILIRUBIN,TOTAL 0.4 MG/DL (0.2-1.0); BLOOD UREA NITROGEN 16 MG/DL (7-18); CARBON DIOXIDE LEVEL 21 MEQ/L (21-32); CHLORIDE LEVEL 108 MEQ/L (98-107); CREATININE FOR GFR 0.94 MG/DL (0.55-1.30); GLOMERULAR FILTRATION RATE > 60.0 (>60); GLUCOSE, FASTING 137 MG/DL (70-100); LIPASE 133 U/L (73-393); POTASSIUM SERUM 3.4 MEQ/L (3.5-5.1); SODIUM LEVEL 139 MEQ/L (136-145); TOTAL PROTEIN 7.6 GM/DL (6.4-8.2)
[2018-02-06 08:51] LABS: CHLAMYDIA DNA AMPLIFICATION NEGATIVE (NEGATIVE); GC DNA AMPLIFICATION NEGATIVE (NEGATIVE)
[2018-02-06] MEDS: PERCOCET 5MG/325MG TAB PO (09:27)
== END 2018-02-06 09:42 | disposition home or self-care (01) ==
LOC: M ED 06:13
DX: N20.1 Calculus of ureter (principal); N13.30 Unspecified hydronephrosis; N13.4 Hydroureter; J45.909 Unspecified asthma, uncomplicated; G43.009 Migraine without aura, not intractable, without status migrainosus; L30.9 Dermatitis, unspecified; Z79.51 Long term (current) use of inhaled steroids; Z79.899 Other long term (current) drug therapy; Z97.5 Presence of (intrauterine) contraceptive device; Z91.040 Latex allergy status; Z98.890 Other specified postprocedural states
CPT/HCPCS: J2405

== ENCOUNTER → 2018-02-23 | Outpatient (REF) | payer OTHER, MEDICARE ==
[2018-02-23 18:05] LABS: APPEARANCE, URINE CLOUDY (CLEAR); BACTERIA, URINE AUTO NEGATIVE (NEGATIVE); BILIRUBIN, URINE AUTO NEGATIVE (NEGATIVE); BLOOD, URINE BLOOD 3+ (NEGATIVE); COLOR, URINE RED (YELLOW); GLUCOSE, URINE (UA) AUTO NEGATIVE (NEGATIVE); KETONE, URINE AUTO NEGATIVE (NEGATIVE); LEUKOCYTE ESTERASE, URINE AUTO 1+ (NEGATIVE); MUCUS, URINE SMALL (NEGATIVE); NITRITE, URINE AUTO NEGATIVE (NEGATIVE); PROTEIN, URINE AUTO 2+ mg/dL (NEGATIVE); RBC, URINE AUTO TNTC /HPF (0-3); SPECIFIC GRAVITY URINE AUTO 1.025 (1.002-1.035); SQUAMOUS EPITHELIAL CELL UR AU 41 /HPF (0-6); UROBILINOGEN, URINE AUTO 0.2 mg/dL (0.0-2.0); WBC, URINE AUTO 23 /HPF (0-3)
== END ==
LOC: M SMT 17:05
DX: N20.0 Calculus of kidney (principal)

== ENCOUNTER → 2018-02-24 | Outpatient (CLI) | payer OTHER ==
[2018-02-24 15:23] LABS: ANION GAP 4 MEQ/L (8-16); CARBON DIOXIDE LEVEL 28 MEQ/L (21-32); CHLORIDE LEVEL 109 MEQ/L (98-107); MAGNESIUM LEVEL 2.1 MG/DL (1.8-2.4); SODIUM LEVEL 141 MEQ/L (136-145)
== END ==
LOC: M LAB 14:43
DX: E87.6 Hypokalemia (principal); N20.0 Calculus of kidney
CPT/HCPCS: 83735

== ENCOUNTER → 2018-03-16 | Outpatient (CLI) | payer OTHER, MEDICARE ==
[2018-03-16 18:18] LABS: APPEARANCE, URINE CLEAR (CLEAR); BACTERIA, URINE AUTO NEGATIVE (NEGATIVE); BILIRUBIN, URINE AUTO NEGATIVE (NEGATIVE); BLOOD, URINE BLOOD NEGATIVE (NEGATIVE); COLOR, URINE YELLOW (YELLOW); GLUCOSE, URINE (UA) AUTO NEGATIVE (NEGATIVE); KETONE, URINE AUTO NEGATIVE (NEGATIVE); LEUKOCYTE ESTERASE, URINE AUTO NEGATIVE (NEGATIVE); MUCUS, URINE SMALL (NEGATIVE); NITRITE, URINE AUTO NEGATIVE (NEGATIVE); PROTEIN, URINE AUTO NEGATIVE (NEGATIVE); RBC, URINE AUTO 1 /HPF (0-3); SPECIFIC GRAVITY URINE AUTO 1.023 (1.002-1.035); SQUAMOUS EPITHELIAL CELL UR AU 1 /HPF (0-6); WBC, URINE AUTO 0 /HPF (0-3)
== END ==
LOC: M WUC 16:28
DX: N20.0 Calculus of kidney (principal)
CPT/HCPCS: 81001

== ENCOUNTER → 2018-03-17 | Outpatient (REF) | payer OTHER, MEDICARE | LOC: M LAB REF 16:17 | DX: J02.9 Acute pharyngitis, unspecified (principal) ==

== ENCOUNTER → 2018-03-29 | Outpatient (CLI) | payer OTHER | LOC: M RAD 09:13 | DX: N20.0 Calculus of kidney (principal) | CPT/HCPCS: 74176 ==

== ENCOUNTER → 2018-08-29 | Outpatient (REF) | payer OTHER, MEDICARE ==
[2018-08-29 20:34] LABS: ALBUMIN 4.3 GM/DL (3.2-5.2); ALBUMIN/GLOBULIN RATIO 1.23 (1.00-1.93); ALKALINE PHOSPHATASE 106 U/L (45-117); ALT/SGPT 30 U/L (12-78); ANION GAP 8 MEQ/L (8-16); AST/SGOT 14 U/L (7-37); BILIRUBIN,TOTAL 0.4 MG/DL (0.2-1.0); BLOOD UREA NITROGEN 13 MG/DL (7-18); CALCIUM LEVEL 9.3 MG/DL (8.5-10.1); CARBON DIOXIDE LEVEL 27 MEQ/L (21-32); CHLORIDE LEVEL 105 MEQ/L (98-107); CREATININE FOR GFR 0.78 MG/DL (0.55-1.30); GLOMERULAR FILTRATION RATE > 60.0 (>60); GLUCOSE, FASTING 87 MG/DL (70-100); POTASSIUM SERUM 4.5 MEQ/L (3.5-5.1); SODIUM LEVEL 140 MEQ/L (136-145); THYROID STIMULATING HORMONE 0.948 uIU/ML (0.358-3.740); TOTAL 25(OH) VITAMIN D 11.7 NG/ML (30.0-100.0); TOTAL PROTEIN 7.8 GM/DL (6.4-8.2)
== END ==
LOC: M LAB REF 19:09
DX: E66.09 Other obesity due to excess calories (principal)
CPT/HCPCS: 84443

== ENCOUNTER → 2018-09-21 | Outpatient (REF) | payer OTHER, MEDICARE | LOC: M LAB REF 16:43 | DX: J02.9 Acute pharyngitis, unspecified (principal) ==

== ENCOUNTER 2019-02-12 16:38 | Emergency (ER) | payer MEDICARE, OTHER ==
[~2019-02-12] VITALS: Ht 167.6 cm; Wt 100.0 kg
[~2019-02-12 16:38] MED LIST changes: +BREO1INH3 INH; +FLOM0.4C39 PO; +IBUP80TA PO; +LORA-243 PO; -LORA10TA2 PO; +ONDA8TAB8 PO; +PERC5TAB12 PO; +TRIA1OI TOP; -ZOFR20TA PO; +ZOFR4TAB16 PO
--- NOTE | 2019-02-12 17:25 | REP ---
Right shoulder: Three views. History: Injury. Findings: The right glenohumeral and acromioclavicular joints are normally aligned. Periarticular soft tissues are unremarkable. No fractures seen. Impression: Negative radiographs of the right shoulder. Electronically Signed by Chemo Morrison MD 02/12/2019 05:17 P
[2019-02-12 17:47] VITALS: BP 108/68
== END 2019-02-12 17:48 | disposition home or self-care (01) ==
LOC: M ED 16:38
DX: S46.911A Strain of unspecified muscle, fascia and tendon at shoulder and upper arm level, right arm, initial encounter (principal); X58.XXXA Exposure to other specified factors, initial encounter; Y92.099 Unspecified place in other non-institutional residence as the place of occurrence of the external cause; Y93.9 Activity, unspecified; Y99.9 Unspecified external cause status; J45.909 Unspecified asthma, uncomplicated; Z79.899 Other long term (current) drug therapy; Z91.040 Latex allergy status

== ENCOUNTER 2019-05-08 01:41 | Emergency (ER) | payer OTHER ==
[~2019-05-08] VITALS: Ht 167.6 cm; Wt 90.9 kg
[~2019-05-08 01:41] MED LIST changes: -NORC1TAB4 PO; +NORC1TAB7 PO
[2019-05-08] MEDS ORDERED: VITA500045 PO (01:49)
[2019-05-08] MEDS ORDERED: HYDR-3363 PO (01:49)
[2019-05-08] MEDS ORDERED: TIZA4TAB4 PO (01:50)
[2019-05-08 02:11] LABS: URINE PREG TEST NEGATIVE (NEGATIVE)
[2019-05-08 03:29] LABS: BASO # 0.1 10^3/uL (0.0-0.2); BASO % 0.5 % (0.0-1.0); EOS # 0.1 10^3/uL (0.0-0.50); EOS % 1.3 % (0.0-3.0); HEMATOCRIT 42.4 % (36.0-47.0); HEMOGLOBIN 14.1 g/dl (12.0-15.5); LYMPH # 3.1 10^3/uL (1.5-6.5); LYMPH % 30.5 % (24.0-44.0); MEAN CORPUSCULAR HEMOGLOBIN 30.5 pg (27.0-33.0); MEAN CORPUSCULAR HGB CONC 33.3 g/dl (32.0-36.5); MEAN CORPUSCULAR VOLUME 91.6 fl (80.0-96.0); MONO # 0.7 10^3/uL (0.0-0.8); MONO % 6.7 % (0.0-5.0); NEUTROPHILS # 6.1 10^3/uL (1.8-7.7); NEUTROPHILS % 60.7 % (36.0-66.0); PLATELET COUNT, AUTOMATED 239 10^3/uL (150-450); RED BLOOD COUNT 4.63 10^6/uL (4.00-5.40); WHITE BLOOD COUNT 10.1 10^3/uL (4.0-10.0)
[2019-05-08 03:52] LABS: ALBUMIN 3.8 GM/DL (3.2-5.2); ALT/SGPT 39 U/L (12-78); BILIRUBIN,DIRECT < 0.1 MG/DL (0.0-0.2); BILIRUBIN,TOTAL 0.3 MG/DL (0.2-1.0); BLOOD UREA NITROGEN 13 MG/DL (7-18); CARBON DIOXIDE LEVEL 28 MEQ/L (21-32); CHLORIDE LEVEL 106 MEQ/L (98-107); CREATININE FOR GFR 0.76 MG/DL (0.55-1.30); GLOMERULAR FILTRATION RATE > 60.0 (>60); GLUCOSE, FASTING 90 MG/DL (70-100); LIPASE 198 U/L (73-393); POTASSIUM SERUM 4.2 MEQ/L (3.5-5.1); SODIUM LEVEL 140 MEQ/L (136-145); TOTAL PROTEIN 7.4 GM/DL (6.4-8.2)
[2019-05-08] MEDS ORDERED: NS 1,000 ML IV ONE (05:45)
[2019-05-08] MEDS ORDERED: KETOROLAC 30 MG/ML VIAL (J1885) IV ONE (05:45)
--- NOTE | 2019-05-08 06:18 | REPVR ---
EXAM: CT Abdomen and Pelvis Without Contrast EXAM DATE/TIME: 05/08/2019 4:05 AM CLINICAL HISTORY: 23 years old, female; Abdominal pain; Flank; Other: Bilateral; Additional info: Abdomen/flank pain TECHNIQUE: Imaging protocol: Axial computed tomography images of the abdomen and pelvis without contrast. Coronal and sagittal reformatted images were created and reviewed. Radiation optimization: All CT scans at this facility use at least one of these dose optimization techniques: automated exposure control; mA and/or kV adjustment per patient size (includes targeted exams where dose is matched to clinical indication); or iterative reconstruction. COMPARISON: CT ABD PELVIS W/O CONTRAST 03/29/2018 9:20 AM FINDINGS: ABDOMEN: Liver: Normal. No mass. Gallbladder and bile ducts: The gallbladder is somewhat contracted with no stones. Pancreas: Normal. No ductal dilation. Spleen: Normal. No splenomegaly. Adrenals: Normal. No mass. Kidneys and ureters: Small nonobstructing bilateral renal calculi. Stomach and bowel: Normal. No obstruction. No mucosal thickening. Appendix: There are no changes of appendicitis. A normal appendix is not seen. PELVIS: Bladder: Unremarkable as visualized. Reproductive: There is an IUD in the uterus. ABDOMEN and PELVIS: Intraperitoneal space: Normal. No free air. No significant fluid collection. Bones/joints: No acute fracture. No dislocation. Soft tissues: Unremarkable. Vasculature: Normal. No abdominal aortic aneurysm. Lymph nodes: Normal. No enlarged lymph nodes. IMPRESSION: 1. There has been little change from 03/29/2018. No acute interval process is identified. 2. Small nonobstructing bilateral renal calculi. No ureteral calculi are evident and there is no evidence of obstructive uropathy. 3. IUD in the uterus. Electronically signed by: Sky Betancourt On 05/08/2019 06:17:49 AM
[2019-05-08 06:34] VITALS: BP 107/71
== END 2019-05-08 06:52 | disposition home or self-care (01) ==
LOC: M ED 01:41
DX: N20.0 Calculus of kidney (principal); N20.1 Calculus of ureter; R11.0 Nausea; J45.909 Unspecified asthma, uncomplicated; Z87.442 Personal history of urinary calculi; F17.200 Nicotine dependence, unspecified, uncomplicated; Z97.5 Presence of (intrauterine) contraceptive device; Z91.040 Latex allergy status; Z79.899 Other long term (current) drug therapy
CPT/HCPCS: 74176; 80048; 80076; 81001; 83690; 84702; 84703; 85025; 87086; 96374; 99284; J1885

== ENCOUNTER 2019-09-17 20:38 | Emergency (ER) | payer OTHER ==
[~2019-09-17] VITALS: Ht 167.6 cm; Wt 90.9 kg
[~2019-09-17 20:38] MED LIST changes: +HYDR-3363 PO; +TIZA4TAB4 PO; +VITA500045 PO
[2019-09-17] MEDS ORDERED: HYDR50TA70 (20:51)
[2019-09-17] MEDS ORDERED: LIDO2SOL9 (22:43)
[2019-09-17] MEDS ORDERED: ALL10TAB29 (22:43)
[2019-09-17 22:56] LABS: INFLUENZA A AMPLIFICATION NEGATIVE (NEGATIVE); INFLUENZA B AMPLIFICATION NEGATIVE (NEGATIVE)
[2019-09-18] MEDS ORDERED: methylPREDNISolone INJ 125 MG/2 ML VIAL (J2930) IV ONE
[2019-09-18] MEDS ORDERED: NS 1,000 ML IV ONE
[2019-09-18] MEDS ORDERED: ACETAMINOPHEN 500 MG TAB PO ONE
[2019-09-18 00:43] LABS: BASO % 0.3 % (0.0-1.0); EOS % 0.1 % (0.0-3.0); HEMATOCRIT 40.3 % (36.0-47.0); HEMOGLOBIN 13.4 g/dl (12.0-15.5); LYMPH # 1.6 10^3/uL (1.5-5.0); LYMPH % 11.3 % (24.0-44.0); MEAN CORPUSCULAR HEMOGLOBIN 30.2 pg (27.0-33.0); MEAN CORPUSCULAR HGB CONC 33.3 g/dl (32.0-36.5); MONO # 1.2 10^3/uL (0.0-0.8); NEUTROPHILS # 11.5 10^3/uL (1.5-8.5); NEUTROPHILS % 79.8 % (36.0-66.0); PLATELET COUNT, AUTOMATED 197 10^3/uL (150-450); RED BLOOD COUNT 4.43 10^6/uL (4.00-5.40); WHITE BLOOD COUNT 14.5 10^3/uL (4.0-10.0)
[2019-09-18] MEDS ORDERED: SUMAtriptan SUCCINATE 25 MG TAB PO ONE (01:00)
[2019-09-18] MEDS ORDERED: diphenhydrAMINE INJ 50MG/ML VIAL (J1200) IV ONE (01:15)
[2019-09-18] MEDS ORDERED: METOCLOPRAMIDE INJ 10MG/2ML VIAL (J2765) IV ONE (01:15)
[2019-09-18] MEDS ORDERED: KETOROLAC 30 MG/ML VIAL (J1885) IM ONE (01:15)
[2019-09-18 01:16] LABS: HCG, SERUM QUALITATIVE POSITIVE (NEGATIVE)
[2019-09-18] MEDS ORDERED: ONDANSETRON 4MG/2ML VIAL (J2405) IV ONE (02:00)
[2019-09-18 02:14] LABS: APPEARANCE, URINE HAZY (CLEAR); BACTERIA, URINE AUTO NEGATIVE (NEGATIVE); BILIRUBIN, URINE AUTO NEGATIVE (NEGATIVE); BLOOD, URINE BLOOD NEGATIVE (NEGATIVE); COLOR, URINE AMBER (YELLOW); GLUCOSE, URINE (UA) AUTO NEGATIVE (NEGATIVE); KETONE, URINE AUTO 2+ mg/dL (NEGATIVE); LEUKOCYTE ESTERASE, URINE AUTO NEGATIVE (NEGATIVE); MUCUS, URINE SMALL (NEGATIVE); NITRITE, URINE AUTO NEGATIVE (NEGATIVE); PROTEIN, URINE AUTO 1+ mg/dL (NEGATIVE); RBC, URINE AUTO 9 /HPF (0-3); SPECIFIC GRAVITY URINE AUTO 1.024 (1.002-1.035); SQUAMOUS EPITHELIAL CELL UR AU 7 /HPF (0-6); WBC, URINE AUTO 3 /HPF (0-3)
[2019-09-18 02:16] LABS: HCG, SERUM QUANTITATIVE < 1.0 MIU/ML
[2019-09-18] MEDS ORDERED: AMOXICILLIN 500 MG CAP PO STA (03:30)
[2019-09-18] MEDS ORDERED: KETOROLAC 30 MG/ML VIAL (J1885) IV ONE (03:30)
[2019-09-18] MEDS ORDERED: AMOX500C PO (03:37)
[2019-09-18 03:54] VITALS: BP 104/53
--- NOTE | 2019-09-18 04:11 | REPVR ---
PROCEDURE INFORMATION: Exam: US Duplex Artery and Vein of the Abdominal and/or Reproductive Organs. Complete Ovaries Exam date and time: 09/18/2019 2:46 AM Clinical history: 23 years old, female; Pelvic pain; Prior surgery; Surgery date: 6+ months; Additional info: Iud placement, pelvic pain celia TECHNIQUE: Imaging protocol: Real-time duplex ultrasound scan of the arterial and venous flow with color Doppler flow and spectral waveform analysis with image documentation. Complete duplex exam focused on the ovaries. Duplex exam was added to evaluate for torsion and other vascular conditions. COMPARISON: US PELVIC NON-OB COMPLETE 07/18/2017 1:04 PM FINDINGS: Right adnexa: Normal arterial and venous blood flow are seen in the right ovary on color and pulsed Doppler. The peak systolic velocity is 8.1 cm/s. Left adnexa: Normal arterial and venous blood flow are seen in the left ovary on color and pulsed Doppler. The peak systolic velocity is 4.5 cm/s. IMPRESSION: Normal blood flow to both ovaries. No evidence of ovarian torsion. PROCEDURE INFORMATION: Exam: US Pelvis, Transvaginal Exam date and time: 09/18/2019 2:46 AM Clinical history: 23 years old, female; Pelvic pain; Prior surgery; Surgery date: 6+ months; Additional info: Iud placement, pelvic pain celia TECHNIQUE: Imaging protocol: Real-time transvaginal pelvic ultrasound with image documentation. Transvaginal imaging was used for better evaluation of the endometrium and adnexa. COMPARISON: US PELVIC NON-OB COMPLETE 07/18/2017 1:04 PM FINDINGS: Uterus/cervix: There is an IUD in the uterus, located at the body and fundus. The endometrial stripe measures 5 mm in thickness. The uterus measures 8.0 x 3.5 x 5.6 cm. No masses are identified in the uterus. Right adnexa: The right ovary appears normal, containing a few follicles and measuring 3.2 x 2.8 x 2.8 cm. Left adnexa: The left ovary contains several follicles and a nearly anechoic cyst measuring 2.6 x 1.4 x 2.5 cm. The left ovary itself measures 4.2 x 4.0 x 2.4 cm. Bladder: The bladder was mostly collapsed. Free fluid: No significant fluid is seen in the cul-de-sac. IMPRESSION: 1. IUD in expected position in the uterus. Otherwise unremarkable appearance of uterus. 2. Several follicles in both ovaries, with a dominant follicle in the left ovary measuring up to 2.6 cm in diameter. Electronically signed by: Rachna Garcia On 09/18/2019 04:10:54 AM
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
== END 2019-09-18 04:03 | disposition home or self-care (01) ==
LOC: M ED 20:38
DX: J02.0 Streptococcal pharyngitis (principal); F41.9 Anxiety disorder, unspecified; E28.2 Polycystic ovarian syndrome; Z85.820 Personal history of malignant melanoma of skin; Z79.899 Other long term (current) drug therapy; Z97.5 Presence of (intrauterine) contraceptive device; Z91.040 Latex allergy status
CPT/HCPCS: 76830; 76856; 80047; 81001; 84702; 84703; 85025; 87086; 87502; 87880; 93976; 96361; 96374; 96375; 99284; J1200; J1885; J2405; J2930

== ENCOUNTER → 2020-10-08 | Outpatient (REF) | payer OTHER ==
[~2020-10-08] MED LIST changes: +AMOX500C PO; +CETI-24; +HYDR50TA70; +LIDO2SOL9; +ZONI25CA13 PO; -ZONI25CA2 PO; +ZONI50CA11 PO; -ZONI50CA3 PO
[2020-10-08 17:40] LABS: ALBUMIN 3.6 GM/DL (3.2-5.2); ALT/SGPT 23 U/L (12-78); BILIRUBIN,TOTAL 0.4 MG/DL (0.2-1.0); BLOOD UREA NITROGEN 11 MG/DL (7-18); CALCIUM LEVEL 8.9 MG/DL (8.5-10.1); CARBON DIOXIDE LEVEL 30 MEQ/L (21-32); CHLORIDE LEVEL 108 MEQ/L (98-107); CHOLESTEROL LEVEL 169 MG/DL (<200); CHOLESTEROL RISK RATIO 3.755 (<5); CREATININE FOR GFR 0.78 MG/DL (0.55-1.30); FREE T4 0.92 NG/DL (0.76-1.46); GLOMERULAR FILTRATION RATE > 60.0 (>60); GLUCOSE, FASTING 91 MG/DL (70-100); HDL CHOLESTEROL 45 MG/DL (>40); LDL CHOLESTEROL 109 MG/DL (<100); NON-HDL-C 124 MG/DL; POTASSIUM SERUM 4.4 MEQ/L (3.5-5.1); SODIUM LEVEL 141 MEQ/L (136-145); TOTAL PROTEIN 6.6 GM/DL (6.4-8.2); TRIGLYCERIDES LEVEL 74 MG/DL (<150)
[2020-10-08 17:42] LABS: TOTAL 25(OH) VITAMIN D 29.1 NG/ML (30.0-100.0)
[2020-10-08 17:46] LABS: BASO % 0.5 % (0.0-1.0); EOS # 0.2 10^3/uL (0.0-0.5); EOS % 2.5 % (0.0-3.0); HEMATOCRIT 42.1 % (36.0-47.0); HEMOGLOBIN 13.7 g/dl (12.0-15.5); LYMPH % 25.9 % (24.0-44.0); MEAN CORPUSCULAR HEMOGLOBIN 29.9 pg (27.0-33.0); MEAN CORPUSCULAR HGB CONC 32.5 g/dl (32.0-36.5); MEAN CORPUSCULAR VOLUME 91.9 fl (80.0-96.0); MONO # 0.5 10^3/uL (0.0-0.8); NEUTROPHILS # 4.9 10^3/uL (1.5-8.5); NEUTROPHILS % 63.7 % (36.0-66.0); PLATELET COUNT, AUTOMATED 222 10^3/uL (150-450); RED BLOOD COUNT 4.58 10^6/uL (4.00-5.40); WHITE BLOOD COUNT 7.7 10^3/uL (4.0-10.0)
[2020-10-08 18:58] LABS: HEMOGLOBIN A1c 5.4 %
== END ==
LOC: M LAB REF 16:42
PROVIDERS: ATTEND Nurse Practitioner Family
DX: Z00.00 Encounter for general adult medical examination without abnormal findings (principal)

== ENCOUNTER → 2020-12-30 | Outpatient (CLI) | payer OTHER ==
--- NOTE | 2020-12-30 14:50 | REP ---
INDICATION: CERVICALGIA. COMPARISON: None. TECHNIQUE: AP, lateral, open mouth views of the cervical spine FINDINGS: Alignment and lordosis maintained. Vertebral bodies and disc spaces are intact and normal. Spinous processes are intact. Surrounding soft tissues are unremarkable. IMPRESSION: Normal cervical spine radiographs. <Electronically signed by Adolfo Diggs > 12/30/20 [id number]
== END ==
LOC: M RAD 13:31
PROVIDERS: ATTEND Physician Assistant
DX: M54.2 Cervicalgia (principal)

== ENCOUNTER → 2021-01-21 | Outpatient (CLI) | payer OTHER ==
--- NOTE | 2021-01-21 17:21 | REP ---
INDICATION: COVID-19. COMPARISON: Comparison study December 27, 2016. TECHNIQUE: Two views.. FINDINGS: The lungs are well inflated and free of infiltrate. The pleural angles are sharp. The heart size is normal. Pulmonary vasculature is not increased. No significant bony abnormality is seen. There are surgical clips projecting in the left axilla. IMPRESSION: Negative chest x-ray. <Electronically signed by Jim Morrison > 01/21/21 [id number]
== END ==
LOC: M RAD 15:07
PROVIDERS: ATTEND Physician Assistant
DX: U07.1 COVID-19 (principal); R05 Cough; Z97.8 Presence of other specified devices

== ENCOUNTER → 2021-03-30 | Outpatient (REF) | payer OTHER | LOC: M LAB REF 16:49 | PROVIDERS: ATTEND Physician Assistant | DX: Z01.419 Encounter for gynecological examination (general) (routine) without abnormal findings (principal); Z11.4 Encounter for screening for human immunodeficiency virus [HIV] ==

== ENCOUNTER 2021-05-10 14:14 | Emergency (ER) | payer OTHER ==
[~2021-05-10] VITALS: Ht 167.6 cm; Wt 102.5 kg
[2021-05-10] MEDS ORDERED: LAMO25TA4 PO (14:22)
[2021-05-10] MEDS ORDERED: BUSP10TA PO (14:22)
[2021-05-10] MEDS ORDERED: MAGIC MOUTHWASH SUSPENSION BTL SS STA (17:23)
[2021-05-10] MEDS ORDERED: TETRACAINE 0.5% OPHTH SOLN 4ML OU ONE (17:25)
[2021-05-10] MEDS ORDERED: BENZONATATE 100 MG CAP PO ONE (17:25)
[2021-05-10 18:06] LABS: BASO % 0.4 % (0.0-1.0); EOS # 0.3 10^3/uL (0.0-0.5); EOS % 4.5 % (0.0-3.0); HEMOGLOBIN 13.5 g/dl (12.0-15.5); LYMPH # 1.9 10^3/uL (1.5-5.0); LYMPH % 25.2 % (24.0-44.0); MEAN CORPUSCULAR HEMOGLOBIN 30.2 pg (27.0-33.0); MEAN CORPUSCULAR HGB CONC 32.9 g/dl (32.0-36.5); MEAN CORPUSCULAR VOLUME 91.7 fl (80.0-96.0); MONO # 0.5 10^3/uL (0.0-0.8); MONO % 7.2 % (2.0-8.0); NEUTROPHILS # 4.7 10^3/uL (1.5-8.5); NEUTROPHILS % 62.3 % (36.0-66.0); PLATELET COUNT, AUTOMATED 225 10^3/uL (150-450); RED BLOOD COUNT 4.47 10^6/uL (4.00-5.40); WHITE BLOOD COUNT 7.5 10^3/uL (4.0-10.0)
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
[2021-05-10] MEDS ORDERED: MAGICMW SSP (20:16)
[2021-05-10] MEDS ORDERED: TESS100C PO (20:16)
[2021-05-10 20:24] VITALS: BP 114/74
== END 2021-05-10 20:51 | disposition home or self-care (01) ==
LOC: M ED 14:14
DX: J06.9 Acute upper respiratory infection, unspecified (principal); B34.8 Other viral infections of unspecified site; H10.89 Other conjunctivitis; J45.909 Unspecified asthma, uncomplicated; Z87.442 Personal history of urinary calculi; Z91.040 Latex allergy status; Z79.899 Other long term (current) drug therapy

== ENCOUNTER → 2021-08-29 | Outpatient (CLI) | payer OTHER ==
[~2021-08-29] MED LIST changes: +ALBU8.5H INH; +ATEN25TA PO; +BUSP10TA PO; +ERGO500029 PO; +LAMO25TA4 PO; +MAGICMW SSP; +ONDA4TAB6 PO; +TESS100C PO
== END ==
LOC: M LABSMTC 10:20
PROVIDERS: ATTEND Anesthesiology
DX: Z20.822 Contact with and (suspected) exposure to COVID-19 (principal)

== ENCOUNTER 2021-09-03 08:25 | Day surgery (SDC) | payer OTHER ==
[~2021-09-03] VITALS: Ht 167.6 cm; Wt 101.7 kg
[~2021-09-03 08:25] MED LIST changes: +HEPARIN SOD (PORCINE) 5000UNITS/ML 1ML VIAL/SYRINGE SQ ONE; +LIDOCAINE 1% MDV 20ML VIAL SQ PRN; +LR 1,000 ML IV ONE; +UNRESOLVED CLARIFICATION ENTRY XX SCH; +ceFAZolin SOD 1 GM in D5W MINI-BAG PLUS 50 ML IV ONE; +ceFAZolin SOD 2 GM in IV 1 EA IV ONE
[2021-09-03] MEDS ORDERED: propofoL 200 MG/20 ML VIAL As Ordered ONE (09:25)
[2021-09-03] MEDS ORDERED: ROCURONIUM BROMIDE 50 MG/5 ML VIAL As Ordered ONE (09:25)
[2021-09-03] MEDS ORDERED: dexameTHASONE 4 MG/ML 1ML VIAL (J1100 PER 1MG) As Ordered ONE (09:25)
[2021-09-03] MEDS ORDERED: ONDANSETRON 4MG/2ML VIAL As Ordered ONE (09:25)
[2021-09-03] MEDS ORDERED: MIDAZOLAM INJ 2MG/2ML VIAL (J2250 PER 1MG) As Ordered ONE (09:25)
[2021-09-03] MEDS ORDERED: LIDOCAINE 2% 100MG/5ML SDV (FOR ANES.) As Ordered ONE (09:25)
[2021-09-03] MEDS ORDERED: fentaNYL 250 MCG/5 ML INJECTION (J3010) As Ordered ONE (09:25)
[2021-09-03] MEDS ORDERED: SCOPOLAMINE 1MG TRANSDERMAL PATCH TOP ONE (10:05)
[2021-09-03] MEDS ORDERED: BUPIVACAINE LIPOSOME/PF 1.3% 20ML VIAL (13.3MG/ML)(EXPAREL)(C9290 PER1MG) As Ordered ONE (10:51)
[2021-09-03] MEDS ORDERED: SUGAMMADEX SODIUM 500 MG/5 ML VIAL (BRIDION) As Ordered ONE (11:33)
[2021-09-03] MEDS ORDERED: ACETAMINOPHEN 1000MG 100ML IV BTL (OFIRMEV) (J0131 PER 10MG) As Ordered ONE (11:33)
[2021-09-03] MEDS ORDERED: HYDROmorphone HCL 2 MG/ML 1ML VIAL As Ordered ONE (12:10)
--- NOTE | 2021-09-03 12:32 | POST-OPPD ---
Postoperative Procedure Note Date Of Procedure: Sep 03, 2021 PREOPERATIVE DIAGNOSIS: Contracted scar middle of back POSTOPERATIVE DIAGNOSIS: same PROCEDURE: Middle of the back scar revision. SURGEON: Dr Mathews M[employer]S PROFESSOR: none ANESTHESIA: general ESTIMATED BLOOD LOSS: 5 cc FINDINGS: contracted scar SPECIMENS: scar COMPLICATIONS: none REPLACED: none DRAINS: 15 Fr round drain POSTOPERATIVE CONDITION: stable DALIA MATHEWS DO Sep 03, 2021 12:32
--- NOTE | 2021-09-03 12:32 | ROOPDOC ---
[facility] Report Of Operation Report of Operation DATE OF PROCEDURE: 09/03/21 PREOPERATIVE DIAGNOSIS: Contracted scar middle of back POSTOPERATIVE DIAGNOSIS: same PROCEDURE: Middle of the back scar revision. SURGEON: Dr Mathews AERIAL PHOTOGRAPHER: none ANESTHESIA: general ESTIMATED BLOOD LOSS: 5 cc FINDINGS: contracted scar SPECIMENS: scar COMPLICATIONS: none REPLACED: none DRAINS: 15 Fr round drain POSTOPERATIVE CONDITION: stable DESCRIPTION OF PROCEDURE: Procedure: this is a 25-year-old female with contracted scar in the mid line of her back. Patient had melanoma excision surgery 10 years ago prior. She had complicated course of healing that incision which resulted in an contracted scar which causes her discomfort and pain. Patient is scheduled for scar revision mid upper back. Informed consent was obtained. Risk, benefits, and alternatives were discussed with patient in details. Patient has left hip hardware which was evaluated on CT scan preoperatively. We plan to use C arm to evaluate the track of her current wounds today. Patient brought into the operating room, placed in supine position, perioperative antibiotics given, compression stockings placed on the calves. General anesthesia is induced. Patient was placed in the prone position with all bony prominences protected. She is prepped and draped in the usual sterile fashion. The scar measures 9 cm in length and its oriented midline. Elliptical incision was carried out to include the whole scar. Full-thickness excision was done using electrocautery. There is extensive scar tissue in deep tissues as well as scarred down area of previous fluid collection with sheath. The sheath in the scar was completely excised until the normal tissue encountered. Wound is irrigated with normal saline. 10 cc of Exparel infiltrated in surrounding tissues. Started closure in layers with deep layer we used interrupted 0 Vicryl sutures to obliterate space. 15 Greenlandic round drain was placed through separate stab incision. Subcutaneous layer closed with 3-0 Monocryl sutures. Prineo dressing applied. Gauze and Tegaderm placed as well. Patient was returned to supine position. She was extubated in operating room without any difficulties, and transferred to recovery in stable condition. DALIA MATHEWS DO Sep 03, 2021 12:32
[2021-09-03] MEDS ORDERED: TRAM50TA2 PO (12:34)
[2021-09-03] MEDS ORDERED: oxyCODONE 5MG TAB PO PRN (12:40)
[2021-09-03] MEDS ORDERED: fentaNYL 100 MCG/2 ML INJECTION (J3010) IV PRN (12:40)
[2021-09-03] MEDS ORDERED: ONDANSETRON 4MG/2ML VIAL IV PRN (12:40)
[2021-09-03] MEDS ORDERED: METOCLOPRAMIDE INJ 10MG/2ML VIAL (J2765 PER 1) IV PRN (12:40)
[2021-09-03] MEDS ORDERED: LR 1,000 ML IV SCH (12:40)
[2021-09-03 16:00] VITALS: BP 117/64
== END 2021-09-03 16:00 | disposition home or self-care (01) ==
LOC: M SDC 08:25
PROVIDERS: ATTEND Plastic Surgery Surgery of the Hand
DX: L90.5 Scar conditions and fibrosis of skin (principal); L91.0 Hypertrophic scar; Z85.820 Personal history of malignant melanoma of skin; G40.909 Epilepsy, unspecified, not intractable, without status epilepticus; F32.9 Major depressive disorder, single episode, unspecified; F41.9 Anxiety disorder, unspecified; Z72.0 Tobacco use; Z91.040 Latex allergy status; Z79.899 Other long term (current) drug therapy; Z86.16 Personal history of COVID-19
CPT/HCPCS: 13101; 13102; 88302; C9290; J0131; J0690; J1100; J1170; J1644; J2250; J2405; J2765; J3010

== ENCOUNTER 2022-03-23 15:11 | Emergency (ER) | payer OTHER ==
[~2022-03-23] VITALS: Ht 167.6 cm; Wt 100.0 kg
[~2022-03-23 15:11] MED LIST changes: -HEPARIN SOD (PORCINE) 5000UNITS/ML 1ML VIAL/SYRINGE SQ ONE; -LIDOCAINE 1% MDV 20ML VIAL SQ PRN; -LR 1,000 ML IV ONE; +TIZA10TA PO; -TIZA4TAB4 PO; +TRAM50TA2 PO; -UNRESOLVED CLARIFICATION ENTRY XX SCH; -ceFAZolin SOD 1 GM in D5W MINI-BAG PLUS 50 ML IV ONE; -ceFAZolin SOD 2 GM in IV 1 EA IV ONE
[2022-03-23] MEDS ORDERED: NS 1,000 ML IV ONE (15:45)
[2022-03-23 16:20] LABS: APPEARANCE, URINE CLEAR (CLEAR); BACTERIA, URINE AUTO NEGATIVE (NEGATIVE); BILIRUBIN, URINE AUTO NEGATIVE (NEGATIVE); BLOOD, URINE BLOOD NEGATIVE (NEGATIVE); COLOR, URINE YELLOW (YELLOW); GLUCOSE, URINE (UA) AUTO NEGATIVE (NEGATIVE); KETONE, URINE AUTO NEGATIVE (NEGATIVE); LEUKOCYTE ESTERASE, URINE AUTO NEGATIVE (NEGATIVE); NITRITE, URINE AUTO NEGATIVE (NEGATIVE); PROTEIN, URINE AUTO NEGATIVE (NEGATIVE); RBC, URINE AUTO 0 /HPF (0-3); SPECIFIC GRAVITY URINE AUTO 1.011 (1.002-1.035); SQUAMOUS EPITHELIAL CELL UR AU 4 /HPF (0-6); UROBILINOGEN, URINE AUTO 0.2 mg/dL (0.0-2.0); WBC, URINE AUTO 0 /HPF (0-3)
[2022-03-23 16:24] LABS: BASO % 0.5 % (0.0-1.0); EOS # 0.3 10^3/uL (0.0-0.5); EOS % 3.2 % (0.0-3.0); HEMATOCRIT 40.5 % (36.0-47.0); HEMOGLOBIN 13.8 g/dl (12.0-15.5); LYMPH # 2.2 10^3/uL (1.5-5.0); LYMPH % 26.1 % (24.0-44.0); MEAN CORPUSCULAR HGB CONC 34.1 g/dl (32.0-36.5); MONO # 0.5 10^3/uL (0.0-0.8); NEUTROPHILS # 5.3 10^3/uL (1.5-8.5); PLATELET COUNT, AUTOMATED 247 10^3/uL (150-450); WHITE BLOOD COUNT 8.3 10^3/uL (4.0-10.0)
[2022-03-23] MEDS ORDERED: KETOROLAC 30 MG/ML 1ML VIAL IV ONE (16:25)
[2022-03-23] MEDS ORDERED: ONDANSETRON 4MG/2ML VIAL IV ONE (16:25)
[2022-03-23 16:42] LABS: ALBUMIN 3.6 GM/DL (3.2-5.2); ALT/SGPT 40 U/L (12-78); AMYLASE 67 U/L (25-115); BILIRUBIN,DIRECT < 0.1 MG/DL (0.0-0.2); BILIRUBIN,TOTAL 0.6 MG/DL (0.2-1.0); BLOOD UREA NITROGEN 12 MG/DL (7-18); CARBON DIOXIDE LEVEL 25 MEQ/L (21-32); CHLORIDE LEVEL 107 MEQ/L (98-107); CREATININE FOR GFR 0.63 MG/DL (0.55-1.30); GLOMERULAR FILTRATION RATE > 60.0 (>60); GLUCOSE, FASTING 102 MG/DL (70-100); LIPASE 124 U/L (73-393); SODIUM LEVEL 137 MEQ/L (136-145); TOTAL PROTEIN 7.2 GM/DL (6.4-8.2)
[2022-03-23] MEDS ORDERED: ACETAMINOPHEN 500 MG TAB PO ONE (19:20)
[2022-03-23] MEDS ORDERED: ISOVUE-370 76% 100ML VIAL As Ordered ONE (19:32)
[2022-03-23] MEDS ORDERED: ONDA4TAB6 PO (20:49)
[2022-03-23 21:05] VITALS: BP 122/60
== END 2022-03-23 21:07 | disposition home or self-care (01) ==
LOC: M ED 15:11
DX: R10.11 Right upper quadrant pain (principal); R11.0 Nausea; J45.909 Unspecified asthma, uncomplicated; E28.2 Polycystic ovarian syndrome; N80.9 Endometriosis, unspecified; Z87.442 Personal history of urinary calculi; Z79.899 Other long term (current) drug therapy; Z88.8 Allergy status to other drugs, medicaments and biological substances; Z91.040 Latex allergy status; F17.210 Nicotine dependence, cigarettes, uncomplicated
CPT/HCPCS: 74177; 76705; 80048; 80076; 81001; 82150; 83690; 84702; 85025; 96361; 96374; 96375; 99284; J1885; J2405; Q9967

== ENCOUNTER → 2022-04-09 | Outpatient (REF) | payer OTHER | LOC: M LAB REF 21:15 | PROVIDERS: ATTEND Physician Assistant | DX: R50.9 Fever, unspecified (principal) ==

== ENCOUNTER → 2022-05-23 | Outpatient (CLI) | payer OTHER | LOC: M LABSMTC 11:52 | PROVIDERS: ATTEND Anesthesiology | DX: Z01.812 Encounter for preprocedural laboratory examination (principal); Z11.52 Encounter for screening for COVID-19 ==

== ENCOUNTER 2022-05-27 12:05 | Day surgery (SDC) | payer OTHER ==
[~2022-05-27] VITALS: Ht 167.6 cm; Wt 108.0 kg
[~2022-05-27 12:05] MED LIST changes: +BOTO10VL IM; +MIRE1IUD IU; +NS 1,000 ML IV ONE
[2022-05-27] MEDS ORDERED: fentaNYL 100 MCG/2 ML INJECTION As Ordered ONE (13:12)
[2022-05-27] MEDS ORDERED: propofoL 200 MG/20 ML VIAL As Ordered ONE (13:31)
[2022-05-27 13:50] VITALS: BP 134/87
== END 2022-05-27 13:52 | disposition home or self-care (01) ==
LOC: M OPP 12:05
PROVIDERS: ATTEND Surgery
DX: K29.50 Unspecified chronic gastritis without bleeding (principal); R11.0 Nausea; R10.13 Epigastric pain; Z79.51 Long term (current) use of inhaled steroids; Z79.899 Other long term (current) drug therapy; Z88.8 Allergy status to other drugs, medicaments and biological substances; Z91.040 Latex allergy status; F17.210 Nicotine dependence, cigarettes, uncomplicated
CPT/HCPCS: 43239; 81025; 88305; J3010

== ENCOUNTER → 2022-06-23 | Outpatient (CLI) | payer OTHER ==
[~2022-06-23] MED LIST changes: -NS 1,000 ML IV ONE
== END ==
LOC: M RAD 07:42
PROVIDERS: ATTEND Physician Assistant
DX: M25.571 Pain in right ankle and joints of right foot (principal)

== ENCOUNTER → 2022-11-19 | Outpatient (REF) | payer OTHER | LOC: M LAB REF 13:12 | PROVIDERS: ATTEND Physician Assistant | DX: R07.0 Pain in throat (principal) ==

== ENCOUNTER → 2023-02-10 | Outpatient (REF) | payer OTHER ==
[2023-02-10 14:51] LABS: BLOOD UREA NITROGEN 17 MG/DL (9-23); CALCIUM LEVEL 9.1 MG/DL (8.5-10.1); CARBON DIOXIDE LEVEL 26 MMOL/L (20-31); CHLORIDE LEVEL 105 MMOL/L (98-107); CREATININE FOR GFR 0.72 MG/DL (0.55-1.30); GLOMERULAR FILTRATION RATE > 60.0 (>60); GLUCOSE, FASTING 94 MG/DL (60-100); POTASSIUM SERUM 4.7 MMOL/L (3.5-5.1); SODIUM LEVEL 138 MMOL/L (136-145)
[2023-02-11 14:08] LABS: EBV VIRAL CAPSID AG IgM <36.0 U/mL (0.0-35.9)
== END ==
LOC: M LAB REF 12:14
PROVIDERS: ATTEND Physician Assistant
DX: E28.2 Polycystic ovarian syndrome (principal); J02.9 Acute pharyngitis, unspecified

== ENCOUNTER → 2023-02-16 | Outpatient (REF) | payer OTHER | LOC: M SFHCDERM 17:50 | PROVIDERS: ATTEND Physician Assistant | DX: D48.5 Neoplasm of uncertain behavior of skin (principal) ==

== ENCOUNTER → 2023-05-16 | Outpatient (CLI) | payer OTHER ==
[~2023-05-16] MED LIST changes: +LIDO2SOBTL; -LIDO2SOL9
== END ==
LOC: M WHC 15:31
PROVIDERS: ATTEND Physician Assistant
DX: R35.0 Frequency of micturition (principal); N39.3 Stress incontinence (female) (male)

== ENCOUNTER 2023-06-18 09:43 | Emergency (ER) | payer OTHER ==
[~2023-06-18] VITALS: Ht 167.6 cm; Wt 112.1 kg
[2023-06-18] MEDS ORDERED: AIMO70IN2 (10:09)
[2023-06-18] MEDS ORDERED: SUMA100T2 (10:09)
[2023-06-18 12:40] LABS: BASO % 0.4 % (0.0-1.0); EOS # 0.1 10^3/uL (0.0-0.5); EOS % 1.3 % (0.0-3.0); HEMATOCRIT 43.3 % (36.0-47.0); HEMOGLOBIN 14.4 g/dl (12.0-15.5); LYMPH # 2.1 10^3/uL (1.5-5.0); LYMPH % 29.5 % (24.0-44.0); MEAN CORPUSCULAR HEMOGLOBIN 29.3 pg (27.0-33.0); MEAN CORPUSCULAR HGB CONC 33.3 g/dl (32.0-36.5); MEAN CORPUSCULAR VOLUME 88.2 fl (80.0-96.0); MONO # 0.4 10^3/uL (0.0-0.8); MONO % 5.9 % (2.0-8.0); NEUTROPHILS # 4.5 10^3/uL (1.5-8.5); NEUTROPHILS % 62.5 % (36.0-66.0); PLATELET COUNT, AUTOMATED 249 10^3/uL (150-450); RED BLOOD COUNT 4.91 10^6/uL (4.00-5.40); WHITE BLOOD COUNT 7.2 10^3/uL (4.0-10.0)
[2023-06-18] MEDS ORDERED: NS 1,000 ML IV ONE (12:50)
[2023-06-18] MEDS ORDERED: METOCLOPRAMIDE INJ 10MG/2ML VIAL IV ONE (12:50)
[2023-06-18] MEDS ORDERED: diphenhydrAMINE 50MG/ML VIAL IV ONE (12:50)
[2023-06-18 12:58] LABS: ERYTHROCYTE SEDIMENTATION RATE 21 mm/hr (0-20)
[2023-06-18 13:11] LABS: C REACTIVE PROTEIN QUANTITATIV 0.9 MG/DL (<1.0)
[2023-06-18 13:12] LABS: ALBUMIN 3.6 G/DL (3.2-5.2); BILIRUBIN,DIRECT 0.1 MG/DL (<0.4); BILIRUBIN,TOTAL 0.6 MG/DL (0.3-1.2); MAGNESIUM LEVEL 1.9 MG/DL (1.8-2.4); TOTAL PROTEIN 6.9 G/DL (5.7-8.2)
[2023-06-18] MEDS ORDERED: KETOROLAC 30 MG/ML 1ML VIAL IV ONE (14:10)
[2023-06-18 15:28] VITALS: BP 122/74; TEMP 97.6; O2SAT 98
== END 2023-06-18 15:29 | disposition home or self-care (01) ==
LOC: M ED 09:43
DX: G43.909 Migraine, unspecified, not intractable, without status migrainosus (principal); E28.2 Polycystic ovarian syndrome; Z88.8 Allergy status to other drugs, medicaments and biological substances; Z91.040 Latex allergy status; Z79.51 Long term (current) use of inhaled steroids; Z79.899 Other long term (current) drug therapy
CPT/HCPCS: 70450; 80047; 80076; 83690; 83735; 84702; 85025; 85652; 86140; 96374; 96375; 99284; J1100; J1200; J1885; J2765

== ENCOUNTER → 2023-12-02 | Outpatient (CLI) | payer OTHER ==
[~2023-12-02] MED LIST changes: +AIMO70IN2; +LIDO100S29; -LIDO2SOBTL; +SUMA100T2
[2023-12-02 16:58] LABS: BASO % 0.4 % (0.0-1.0); EOS # 0.1 10^3/uL (0.0-0.5); EOS % 1.3 % (0.0-3.0); HEMATOCRIT 43.6 % (36.0-47.0); HEMOGLOBIN 14.6 g/dl (12.0-15.5); LYMPH # 2.6 10^3/uL (1.5-5.0); LYMPH % 31.6 % (24.0-44.0); MEAN CORPUSCULAR HEMOGLOBIN 29.6 pg (27.0-33.0); MEAN CORPUSCULAR HGB CONC 33.5 g/dl (32.0-36.5); MEAN CORPUSCULAR VOLUME 88.4 fl (80.0-96.0); MONO # 0.5 10^3/uL (0.0-0.8); MONO % 5.4 % (2.0-8.0); NEUTROPHILS % 60.9 % (36.0-66.0); PLATELET COUNT, AUTOMATED 283 10^3/uL (150-450); RED BLOOD COUNT 4.93 10^6/uL (4.00-5.40); WHITE BLOOD COUNT 8.3 10^3/uL (4.0-10.0)
[2023-12-02 17:05] LABS: ALBUMIN 3.8 G/DL (3.2-5.2); ALKALINE PHOSPHATASE 97 U/L (46-116); ALT/SGPT 96 U/L (7.0-40); AST/SGOT 53 U/L (<34); BILIRUBIN,TOTAL 0.7 MG/DL (0.3-1.2); BLOOD UREA NITROGEN 14 MG/DL (9-23); CARBON DIOXIDE LEVEL 27 MMOL/L (20-31); CHLORIDE LEVEL 107 MMOL/L (98-107); CHOLESTEROL LEVEL 206 MG/DL (<200); CHOLESTEROL RISK RATIO 6.22 (<5); CREATININE FOR GFR 0.67 MG/DL (0.55-1.30); GLOMERULAR FILTRATION RATE > 60.0 (>60); GLUCOSE, FASTING 80 MG/DL (60-100); HDL CHOLESTEROL 33.1 MG/DL (>40); LDL CHOLESTEROL 137.5 MG/DL (<100); NON-HDL-C 172.9 MG/DL; POTASSIUM SERUM 4.4 MMOL/L (3.5-5.1); SODIUM LEVEL 139 MMOL/L (136-145); TRIGLYCERIDES LEVEL 177 MG/DL (<150)
[2023-12-02 17:07] LABS: THYROID STIMULATING HORMONE 1.408 uIU/ML (0.55-4.78); TOTAL 25(OH) VITAMIN D 23.8 NG/ML (20.0-100.0)
[2023-12-02 18:11] LABS: HEMOGLOBIN A1c 5.4 % (4.0-6.0)
== END ==
LOC: M LAB 15:30
PROVIDERS: ATTEND Physician Assistant
DX: E66.9 Obesity, unspecified (principal)

== ENCOUNTER → 2024-07-26 | Outpatient (REF) | payer OTHER ==
[~2024-07-26] MED LIST changes: +ONDA-282 PO; +ONDA-284 PO; -ONDA4TAB6 PO; -ONDA8TAB8 PO
[2024-07-26 18:58] LABS: MONO REFLEX EBV COMP NEGATIVE (NEGATIVE)
[2024-07-31 14:16] LABS: EBV VIRAL CAPSID AG IGM < 36.00 U/mL (<36.00)
== END ==
LOC: M LAB REF 16:37
PROVIDERS: ATTEND Physician Assistant
DX: J02.9 Acute pharyngitis, unspecified (principal)

== ENCOUNTER → 2024-08-06 | Outpatient (REF) | payer OTHER ==
[2024-08-06 17:38] LABS: HEMATOCRIT 39.7 % (36.0-47.0); HEMOGLOBIN 13.1 g/dl (12.0-15.5); MEAN CORPUSCULAR HEMOGLOBIN 29.1 pg (27.0-33.0); MEAN CORPUSCULAR VOLUME 88.2 fl (80.0-96.0); PLATELET COUNT, AUTOMATED 242 10^3/uL (150-450); WHITE BLOOD COUNT 7.7 10^3/uL (4.0-10.0)
[2024-08-06 18:02] LABS: ALBUMIN 3.5 G/DL (3.2-5.2); ALKALINE PHOSPHATASE 106 U/L (46-116); ALT/SGPT 37 U/L (7.0-40); AST/SGOT 16 U/L (<34); BILIRUBIN,TOTAL 0.7 MG/DL (0.3-1.2); BLOOD UREA NITROGEN 12 MG/DL (9-23); CALCIUM LEVEL 9.2 MG/DL (8.5-10.1); CARBON DIOXIDE LEVEL 25 MMOL/L (20-31); CHLORIDE LEVEL 109 MMOL/L (98-107); CHOLESTEROL LEVEL 193 MG/DL (<200); CHOLESTEROL RISK RATIO 6.52 (<5); CREATININE FOR GFR 0.69 MG/DL (0.55-1.30); GLOMERULAR FILTRATION RATE > 60.0 (>60); GLUCOSE, FASTING 90 MG/DL (60-100); HDL CHOLESTEROL 29.6 MG/DL (>40); LDL CHOLESTEROL 124.6 MG/DL (<100); NON-HDL-C 163.4 MG/DL; SODIUM LEVEL 137 MMOL/L (136-145); TOTAL PROTEIN 6.6 G/DL (5.7-8.2); TRIGLYCERIDES LEVEL 194 MG/DL (<150)
[2024-08-06 18:03] LABS: TOTAL 25(OH) VITAMIN D 14.9 NG/ML (20.0-100.0)
== END ==
LOC: M LAB REF 16:16
PROVIDERS: ATTEND Physician Assistant
DX: E28.2 Polycystic ovarian syndrome (principal); K76.0 Fatty (change of) liver, not elsewhere classified

== ENCOUNTER → 2025-01-14 | Outpatient (REF) | payer OTHER | LOC: M LAB REF 17:34 | PROVIDERS: ATTEND Nurse Practitioner Family | DX: J02.9 Acute pharyngitis, unspecified (principal) ==